=== PATIENT | male | born 1935 | race Caucasian/White ===

== ENCOUNTER 2016-12-09 11:17 | Inpatient (IN) | payer MEDICARE ==
[~2016-12-09] VITALS: Ht 172.7 cm; Wt 85.6 kg
[~2016-12-09 11:17] MED LIST: ASPI1TAB PO; ATOR40TA75 PO; AUGM875T28 PO; BACT800T5 PO; CARV25TA PO; DEPA125C PO; FOLI1TAB4 PO; HYDR-3363 PO; ISOS30TAB PO; KLOR1TAB73 PO; LASI40TA PO; LOSA50TA20 PO; OMEP20CA3 PO; PRED5TA PO; PROZ20CA11 PO; REQU2TAB3 PO; SPIR25TA2 PO; VITA100066 PO; WARF-58 PO
[2016-12-09 17:20] VITALS: PULSE 84
[2016-12-09 17:30] VITALS: BP 118/68
[2016-12-09] MEDS ORDERED: ONDANSETRON 4MG/2ML VIAL (J2405) IV PRN (18:00)
[2016-12-09] MEDS ORDERED: ROPI3TAB PO (20:15)
[2016-12-09] MEDS ORDERED: CARV3.12 PO (20:15)
[2016-12-09] MEDS ORDERED: VITMTA PO (20:19)
[2016-12-09] MEDS ORDERED: MELA1TAB15 PO (20:19)
[2016-12-09] MEDS ORDERED: FERR325T16 PO (20:19)
[2016-12-09] MEDS ORDERED: VITA100T PO (20:19)
[2016-12-09] MEDS ORDERED: DONETAB6 PO (20:19)
[2016-12-09] MEDS ORDERED: ZOLP10TA2 PO (20:19)
--- NOTE | 2016-12-09 20:20 | HPEPDOC ---
General Date of Admission Dec 09, 2016 at 11:17 Other Providers PCP: [facility] Attending Physician: SUSANNA NAVA DO Chief Complaint The patient is a 81-year-old male admitted with a reason for visit of Acute Renal Failure. History of Present Illness 81-year-old male with a rather complicated past medical history in recent months who recently had a bioprosthetic aortic valve replacement at [facility] on 09/13/2016. This was complicated by a subsequent admission for MSSA bacteremia on 11/28/2016. A PAZ done during the admission at [facility] revealed no vegetations on the valve. However, the patient was treated for presumptive endocarditis with oxacillin, rifampin, and 2 weeks of gentamicin starting on 12/01/16. Unfortunately, the patient's course was further complicated by C. difficile infection from the aforementioned antibiotics. The patient was then also started on 6 weeks of oral vancomycin. The patient then decided to sign himself out AGAINST MEDICAL ADVICE at [facility] on 12/04/16, and was said to be considering hospice care. The next day the patient was admitted to [facility] for generalized weakness and decompensated congestive heart failure, with the plan to transfer the patient to hospice vs rehabilitation eventually depending on the patient's clinical condition. The patient subsequently developed acute renal failure during his admission at [facility] from 12/05-12/09, as his serum creatinine increased from 0.7 to 3.0 during this time. Of note, the patient has been oliguric for the last 3 days producing about 50 mL of urine each day during this time. The patient was subsequently transferred to [facility] for further evaluation and management with nephrology consultation, as the patient and the family wanted to pursue further medical care. At this time, the patient states that he is feeling generalized fatigue, but denies any acute complaints of fevers, chills, SOB, chest pain, palpitations, lightheadedness, abdominal pain, or any nausea/vomiting. Home Medications Scheduled Aspirin (Aspirin 81) 81 Mg Tab, 81 MG PO DAILY, (Reported) Atorvastatin Calcium (Atorvastatin Calcium) 40 Mg Tab, 40 MG PO QHS, (Reported) Carvedilol (Carvedilol) 3.125 Mg Tab, 3.125 MG PO BID, (Reported) Cholecalciferol (Vitamin D) 1,000 Unit Tab, 1,000 UNIT PO DAILY, (Reported) Cyanocobalamin (Vitamin B-12) 100 Mcg Tab, 100 MCG PO DAILY, (Reported) Donepezil Hcl (Donepezil HCl) 10 Mg Tab, 10 MG PO DAILY, (Reported) Ferrous Gluconate (Ferrous Gluconate) 324 Mg Tab, 324 MG PO DAILY, (Reported) Fluoxetine HCl (Prozac) 20 Mg Cap, 20 MG PO BID, (Reported) Folic Acid (Folic Acid) 1 Mg Tab, 1 MG PO DAILY, (Reported) Furosemide (Lasix) 40 Mg Tab, 40 MG PO DAILY, (Reported) Melatonin (Melatonin) 10 Mg Tab, 10 MG PO QHS, (Reported) Multivitamins *[facility] STOCKED* (Thera M Plus *[facility] STOCKED*) 1 Tab Tab, 1 TAB PO BID , (Reported) Omeprazole (Omeprazole) 20 Mg Cap, 20 MG PO BID, (Reported) Ropinirole Hydrochloride (Ropinirole HCl) 3 Mg Tab, 3 MG PO QHS, (Reported) Spironolactone (Spironolactone) 25 Mg Tab, 25 MG PO DAILY, (Reported) Warfarin Sod (Warfarin Sodium) 3 Mg Tab, 3 MG PO DAILY, (Reported) Zolpidem Tartrate (Zolpidem Tartrate) 10 Mg Tab, 10 MG PO QHS, (Reported) Allergies Coded Allergies: Penicillins (Unverified Allergy, Unknown, 05/14/15) Past Medical History Medical History MSSA bacteremia, presumptive infective endocarditis, C. difficile colitis, history of CVA/TIA, atrial fibrillation not on Coumadin secondary to history of brain hemorrhage, congestive heart failure, hypertension, dyslipidemia, restless leg syndrome, GERD, anxiety/depression, CAD, history of prostate cancer , obstructive sleep apnea, history of LA Surgical History CAD status post stenting, CABG, appendectomy, prostatectomy, hernia repair, bioprosthetic valve replacement, cataract repair bilaterally Family History Significant Family History: No pertinent family hx Social History * Smoker: former Smoker Alcohol: Denies Drugs: denies Review of Symptoms Other systems 10 point review of systems negative unless otherwise specified in HPI. Physical Examination General Exam: Positive: Alert, Cooperative, No Acute Distress ENT Exam: Positive: Atraumatic, Mucous membr. moist/pink Neck Exam: Negative: JVD Chest Exam: Positive: Diminished, Negative: Rhonchi, Wheezing Heart Exam: Positive: Rate Normal, Normal S1, Normal S2, Other (+II/ systolic murmur along the sternal border on the left ) Abdomen Exam: Positive: Soft, Negative: Tenderness Extremity Exam: Negative: Tenderness, Swelling Vital Signs Vital Signs Date Time Temp Pulse Resp B/P (MAP) Pulse Ox O2 Delivery O2 Flow Rate FiO2 12/09/16 17:30 97.9 84 20 118/68 (85) 92 Nasal Cannula 3.0 Plan / VTE VTE Prophylaxis Ordered?: Yes (SCDs/TEDs) Plan / Urinary Catheter Reason for insertion/continuin: Critical Pt monitoring Plan Plan Acute Renal Failure 2/2 Multifactorial Etiology including Nephrotoxicity from Antibiotics, Volume Depletion from C. Diff diarrhea, and Concomitant Diuretic Use We will admit the patient to PCU Serum Cr 3.0 (Baseline 0.7-0.9) Will order gentle IVF Hydration as the patient does not appear to be volume overloaded at this time. Hold Nephrotoxins We will renally dose other medications Monitor I/O's Renal and Bladder U/S ordered as the patient has been having Hematuria Nephrology consultation placed MSSA Bacteremia 2/2 Presumptive Infective Endocarditis Patient was initially started on Gentamycin, Naficillin, Rifampin on 12/01-- however this has been held 2/2 Nephrotoxicity The hospitalist at [facility] did discuss antibiotic options with ID at [facility] and it was recommended that the patient be started on Rocephin We will cont Rocephin here Blood Cultures from 12/07 from [facility] negative Patient afebrile, with a normal WBC here We will repeat B Cx and monitor here Hx of Diff Patient was started on Vanco PO, however this was stopped 2/2 above The patient states that his diarrhea has dissipated We will continue to monitor off Abx for now, consider restarting Abx if diarrhea returns Hematuria We will hold the patient's ASA for now given his significant Hematuria noted Possibly 2/2 Traumatic Bello catheterization? Renal U/S, Bladder U/S ordered Atrial Fibrillation, rate controlled Not on AC 2/2 Hx of Hemorrhagic Brain Bleed according to records Cont Coreg Hx of CAD, Bioprosthetic Valve Replacement Cont Coreg, Statin We will hold the patient's ASA for now given his significant Hematuria noted Hx of Diastolic Congestive Heart Failure Patient appears Euvolemic at this time We will with hold any diuretics Depression/Anxiety Cont Current Regimen Dyslipidemia Cont statin Hx of CVA Cont Statin We will hold the patient's ASA for now given his significant Hematuria noted Restless Leg syndrome Cont Ropinirole DVT Prophylaxis (SCD/TEDs) Prognosis-the patient has a poor long-term prognosis given the patient's complicated recent medical history, and current underlying medical comorbidities. Currently the patient is DNR/DNI, however the family does state that there is a consideration of making the patient comfort measures only if his medical condition does not improve during this hospitalization. This patient will be admitted under the service of Dr. Nava, who will begin to follow the patient on 12/10/16 at 7 AM. SANTI BURR MD Dec 09, 2016 20:20
[2016-12-09 20:28] VITALS: BP 123/63
[2016-12-09] MEDS: ATORVASTATIN 20 MG TAB PO SCH (22:01)
[2016-12-09] MEDS: FLUoxetine 20 MG CAP PO SCH (22:02)
[2016-12-09] MEDS: CARVedilol 3.125 MG TAB PO SCH (22:02)
[2016-12-09] MEDS: rOPINIRole 1MG TAB PO SCH (22:02)
[2016-12-09] MEDS: MULTIVITAMINS/MINERALS THERAP 1 TAB PO SCH (22:02)
[2016-12-09] MEDS: NS 1,000 ML IV SCH (22:03)
[2016-12-09] MEDS: NYSTATIN 100,000 UNITS/GM TOPICAL PWD 15 GM TOP SCH (22:03)
[2016-12-09] MEDS: cefTRIAXone SOD 1 GM in D5W MINI-BAG PLUS 50 ML IV SCH (22:03)
--- NOTE | 2016-12-09 23:30 | REP ---
RENAL ULTRASOUND: Real-time sonographic evaluation of the kidneys is performed and demonstrates both kidneys to be somewhat increased in echotexture suggesting medical renal disease. There is no hydronephrosis. A cyst in the upper pole of the right kidney measures 1.9 x 1.8 x 1.4 cm and another adjacent cyst just inferior to that measures 1.3 x 1.1 x 0.7 cm. The cyst in the lower pole of the right kidney measures 5.4 x 3.6 x 4.7 cm. There are two subcentimeter cysts in the left upper pole. Bello catheter is seen in the urinary bladder. IMPRESSION: No hydronephrosis. Bilateral renal cysts. Signed by Pedro Bell MD 12/10/2016 05:00 P
[2016-12-09 23:59] VITALS: BP 126/58
[2016-12-10 05:00] VITALS: BP 115/69
[2016-12-10 05:50] LABS: MEAN CORPUSCULAR VOLUME 109.5 fl (80.0-96.0); RED CELL DISTRIBUTION WIDTH 15.6 % (11.5-14.5); WHITE BLOOD COUNT 8.1 K/mm3 (4.0-10.0)
[2016-12-10 06:23] LABS: MICROSCOPIC INDICATED? MAN YES (NO)
[2016-12-10 06:28] LABS: BACTERIA, URINE SMALL AMOUNT; HYALINE CAST, URINE NONE SEEN /lpf (0-1); RBC, URINE TNTC /hpf (0-3); SQUAMOUS EPITHELIAL CELL URINE NONE SEEN /hpf (SMALL AMT)
[2016-12-10 06:29] LABS: MICROSCOPIC EXAM UNSPUN
[2016-12-10 06:39] LABS: ALBUMIN 1.8 GM/DL (3.2-5.2); ALBUMIN/GLOBULIN RATIO 0.51 (1.00-1.93); BILIRUBIN,TOTAL 1.3 MG/DL (0.2-1.0); CALCIUM LEVEL 7.6 MG/DL (8.8-10.2); CREATININE FOR GFR 3.97 MG/DL (0.70-1.30); GLOMERULAR FILTRATION RATE 15.6 (>42); MAGNESIUM LEVEL 1.9 MG/DL (1.8-2.4); PHOSPHORUS LEVEL 4.9 MG/DL (2.5-4.9); TOTAL PROTEIN 5.3 GM/DL (6.4-8.2)
[2016-12-10 06:52] LABS: INR 2.36
[2016-12-10 08:00] VITALS: BP 113/65
[2016-12-10] MEDS: NYSTATIN 100,000 UNITS/GM TOPICAL PWD 15 GM TOP SCH ×2 (09:19→21:13)
[2016-12-10] MEDS: FERROUS GLUCONATE 324 MG TAB PO SCH (09:20)
[2016-12-10] MEDS: MULTIVITAMINS/MINERALS THERAP 1 TAB PO SCH ×2 (09:20→21:13)
[2016-12-10] MEDS: FLUoxetine 20 MG CAP PO SCH ×2 (09:20→21:12)
[2016-12-10] MEDS: CARVedilol 3.125 MG TAB PO SCH ×2 (09:20→21:13)
[2016-12-10] MEDS: FOLIC ACID 1 MG TAB PO SCH (09:20)
[2016-12-10] MEDS: NS 1,000 ML IV SCH (09:21)
[2016-12-10 12:00] VITALS: BP 101/57
--- NOTE | 2016-12-10 12:25 | REP ---
AP LATERAL CHEST: 12/10/2016 CLINICAL HISTORY: CHF, ARF. COMPARISON: Portable chest, 11/23/2016. FINDINGS: Lead pacer over the right upper chest with leads in the right antrum and right ventricle with prior leads from the previous pacer extending into the left upper chest is unchanged. There is cardiomegaly with left atrial and ventricular enlargement and venous hypertension. Underlying fibrosis present, but there is interstitial edema and basilar infiltrates or atelectasis that may reflect some alveolar edema. There is pleural effusion, left greater than right. Sternotomy wires are again seen. There are chronic post-traumatic changes to the left humeral head and glenoid. No other significant finding. No free air under the diaphragm. IMPRESSION: 1. Cardiomegaly with left atrial and ventricular enlargement, vascular redistribution with pulmonary edema and effusion prominently on the left with retrocardiac and right lower lobe increased density from atelectasis and/or infiltrate with effusion. 2. Right-sided pacer unit with leads unchanged and prior leads from a left-sided unit since removed. These are stable. Signed by Kiel Scruggs MD 12/10/2016 03:57 P
[2016-12-10] MEDS ORDERED: HEPARIN 1,000 UNITS/ML 10ML VIAL (FOR RADIOLOGY& DIALYSIS ONLY) As Ordered ONE (15:19)
[2016-12-10] MEDS ORDERED: LIDOCAINE W/EPINEPHRINE 1% 20ML VIAL As Ordered ONE (15:19)
[2016-12-10] MEDS ORDERED: LIDOCAINE 2% MDV 20 ML VIAL As Ordered ONE (16:02)
--- NOTE | 2016-12-10 17:31 | REPKIM ---
CLINICAL HISTORY: Patient with significant medical comorbidities, s/p AVR, AF, CVA/TIA, CAD with stenting, VT, MSSA bacteremia, s/p internal pacemaker presents with acute renal failure and coagulopathy. The referring nephrology service has asked a non-tunneled dialysis catheter placement. PROCEDURE PERFORMED: Right IJ Schon Non-tunneled Dialysis Catheter Placement INTERVENTIONALIST: Susana Davis MD MEDICATIONS: Local Lidocaine EBL: less than 10mL DEVICE USED: 14F SCHON XL 15-cm Double Lumen Catheter Lot#[id number] FLUORO TIME: 1.8 minutes CONSENT: The risks, benefits and alternatives to the procedure were explained to the patients and informed written consent was obtained. PROCEDURE/FINDINGS: The patient was brought to the interventional radiology suite and was positioned supine on the table. Time out procedure was performed. The right neck was prepped and draped in a usual sterile fashion. Real time ultrasound was used and permanent image stored. Using real time ultrasound guidance the IJ vein was punctured, after infiltration of the skin and deep tissues with local anesthetic. The guidewire was introduced. Using this access , a double lumen 14-Khmer Schon XL catheter was inserted over the guidewire. Post procedure chest radiograph showed the tip of the catheter at the SVC. The catheter was secured at the skin exit site with 2-0 suture. Each port of the catheter was flushed with saline then locked with heparin (concentration 1000 units/cc). A sterile dressing was then applied. The patient tolerated the procedure well with no immediate complications. This procedure was performed using ultrasound and fluoroscopy. Dr. Davis was present. IMPRESSION: 1. Ultrasound of the neck demonstrates patent right IJ vein and compressible. 2. Successful Schon non-tunneled dialysis catheter placement as discussed above. The catheter is ready for immediate use. cc: MD Thierry Barron MD MTDD
--- NOTE | 2016-12-10 18:36 | IPNPDOC ---
Subjective Date Seen The patient was seen on 12/10/16. Subjective Chief Complaint/HPI The patient is a 81-year-old male admitted with a reason for visit of Acute Renal Failure. General: Reports: Fatigue Constitutional: Denies: Chills, Fever, Night Sweats Gastrointestinal: Denies: Nausea, Vomiting, Abdominal Pain, Diarrhea, Constipation Objective Physical Examination General Exam: Positive: Alert, Cooperative, No Acute Distress ENT Exam: Positive: Atraumatic, Mucous membr. moist/pink Neck Exam: Negative: JVD Chest Exam: Positive: Diminished, Negative: Rhonchi, Wheezing Heart Exam: Positive: Rate Normal, Normal S1, Normal S2, Other (+II/ systolic murmur along the sternal border on the left ) Abdomen Exam: Positive: Soft, Negative: Tenderness Extremity Exam: Negative: Tenderness, Swelling Assessment /Plan Problems (1) Acute renal failure Status: Acute (2) Diarrhea Status: Acute (3) CHF (congestive heart failure) Status: Acute (4) Afib Status: Acute (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 (6) Bacteremia Status: Chronic Plan/VTE VTE Prophylaxis Ordered?: Yes (SCDs/TEDs) Plan/Urinary Catheter Reason for insertion/continuin: Critical Pt monitoring VS, I&O, 24H, Fishbone Vital Signs/I&O Vital Signs Date Time Temp Pulse Resp B/P (MAP) Pulse Ox O2 Delivery O2 Flow Rate FiO2 12/10/16 12:00 98.0 89 20 101/57 (72) 97 Nasal Cannula 3.0 I&O- Last 24 Hours up to 6 AM 12/10/16 06:00 Intake Total 0 ml Output Total 0 ml Balance 0 ml Laboratory Data 24H LABS Laboratory Tests 2 12/10/16 05:40: Prothrombin Time 25.9H, Prothromb Time International Ratio 2.36, Anion Gap 10, Glomerular Filtration Rate 15.6L, Blood Urea Nitrogen 29H, Creatinine 3.97H, Sodium Level 141, Potassium Level 4.0, Chloride Level 111H, Carbon Dioxide Level 20L, Calcium Level 7.6L, Phosphorus Level 4.9, Aspartate Amino Transf (AST /SGOT) 67H, Alanine Aminotransferase (ALT/SGPT) 23, Alkaline Phosphatase 203H, Total Bilirubin 1.3H, Total Protein 5.3L, Albumin 1.8L, Magnesium Level 1.9, Albumin/Globulin Ratio 0.51L 12/10/16 05:52: Bedside Urine Color (LAB) REDH, Bedside Urine Appearance (LAB) TURBIDH, Bedside Urine pH (LAB) OBSCUREDH, Bedside Urine Specific [place] (LAB 1.005, Bedside Urine Protein (LAB) OBSCUREDH, Bedside Urine Glucose (UA) OBSCUREDH, Bedside Urine Ketones (LAB) OBSCUREDH, Bedside Urine Blood POSITIVEH, Bedside Urine Nitrite (LAB) OBSCUREDH, Bedside Urine Bilirubin (LAB) OBSCUREDH, Bedside Urine Urobilinogen (LAB) OBSCUREDH, Bedside Urine Leukocyte Esterase (L OBSCUREDH, Urine WBC 1-3, Urine RBC TNTCH, Urine Squamous Epithelial Cells NONE SEEN, Urine Bacteria SMALL AMOUNTH, Urine Hyaline Casts NONE SEEN, Urine Sediment Examination UNSPUN CBC/BMP Laboratory Tests 12/10/16 05:40 Red Blood Count 2.74 L, Mean Corpuscular Volume 109.5 H, Mean Corpuscular Hemoglobin 35.0 H, Mean Corpuscular Hemoglobin Concent 32.0, Red Cell Distribution Width 15.6 H, Calcium Level 7.6 L, Phosphorus Level 4.9, Aspartate Amino Transf (AST/SGOT) 67 H, Alanine Aminotransferase (ALT/SGPT) 23, Alkaline Phosphatase 203 H, Total Bilirubin 1.3 H, Total Protein 5.3 L, Albumin 1.8 L Microbiology Microbiology 12/09/16 Blood Culture, Received Pending SUSANNA HAQUE DO Dec 10, 2016 18:35
[2016-12-10 20:20] VITALS: BP_SYST 100; BP_SYST 130; BP_DIAS 58
[2016-12-10] MEDS: rOPINIRole 1MG TAB PO SCH (21:12)
[2016-12-10] MEDS: cefTRIAXone SOD 1 GM in D5W MINI-BAG PLUS 50 ML IV SCH (21:12)
[2016-12-10] MEDS: ATORVASTATIN 20 MG TAB PO SCH (21:12)
[2016-12-10 23:33] VITALS: BP 86/56
[2016-12-11 00:46] VITALS: BP 100/70
[2016-12-11] MEDS ORDERED: SODIUM CHLORIDE 0.9% INJ 10 ML SYR IV PRN (01:15)
[2016-12-11 04:35] VITALS: BP 119/64
[2016-12-11] MEDS: SODIUM CHLORIDE 0.9% INJ 10 ML SYR IV SCH ×3 (05:05→21:55)
[2016-12-11 05:24] LABS: MEAN CORPUSCULAR HEMOGLOBIN 35.1 pg (27.0-33.0); MEAN CORPUSCULAR HGB CONC 32.2 g/dl (32.0-36.5); MEAN CORPUSCULAR VOLUME 108.8 fl (80.0-96.0); RED CELL DISTRIBUTION WIDTH 15.5 % (11.5-14.5); WHITE BLOOD COUNT 9.2 K/mm3 (4.0-10.0)
--- NOTE | 2016-12-11 05:27 | CR ---
DATE OF CONSULTATION: 12/10/2016 REFERRING PHYSICIAN: Thierry Ambriz MD. REASON FOR CONSULTATION Acute oliguric renal failure in this gentleman with complicated medical problems. HISTORY OF PRESENT ILLNESS: Mr. Villagran is a 81-year-old gentleman who was transferred to [facility] last evening from [facility]. The patient has multiple chronic medical problems and recently underwent aortic valve replacement at [facility]. Following that, he developed methicillin-sensitive Staphylococcus aureus (MSSA) bacteremia and was being treated for presumptive infective endocarditis. The patient signed out against medical advice from [facility] and a day later was admitted to [facility]. He had received antibiotics including gentamicin and the patient developed acute oliguric renal failure. He was treated by hospitalist at [facility] for two days with intravenous (IV) fluids, and antibiotics were stopped. I was called and case discussed by the hospitalist. The patient refused to go back to [facility] where his surgery was recently performed. The patient is transferred to [facility] due to potential need for dialysis. PAST MEDICAL AND SURGICAL HISTORY: 1. Significant for history of hypertension. 2. Coronary artery disease with prior myocardial infarction (MA). 3. History of dyslipidemia. 4. History of congestive heart failure. 5. History of recent aortic valve replacement. 6. History of presumptive infective endocarditis due to bacteremia. 7. Prior history of stroke. 8. History of atrial fibrillation currently not on anticoagulation. 9. History of obstructive sleep apnea. 10. History of gastroesophageal reflux disease. 11. History of anxiety and depression. Past surgical history is significant for coronary artery angioplasty with stents, history of coronary artery bypass graft (CABG), history of aortic valve replacement, remote history of appendectomy, prostatectomy, hernia repair, cataract surgery bilaterally. MEDICATIONS His home medications included: - aspirin 81 mg daily - atorvastatin 40 mg daily - carvedilol 3.125 mg twice a day - vitamin D 1000 units daily - vitamin B12 100 mcg daily - donepezil 10 mg daily - ferrous gluconate 324 mg daily - Prozac 20 mg daily - folic acid 1 mg daily - Lasix 40 mg daily - multivitamin one tablet daily - omeprazole 20 mg daily - Requip 3 mg at bedtime - spironolactone 25 mg daily - Coumadin 3 mg daily - Ambien 10 mg at bedtime ALLERGIES: The patient has allergy to PENICILLIN. PERSONAL AND SOCIAL HISTORY: The patient is a former smoker. He denies any alcohol or drug use. He lives with his family in [facility]. FAMILY HISTORY: Is negative for end-stage renal disease. REVIEW OF SYSTEMS: The patient denies any headache. Ears, nose and throat are unremarkable. Cardiovascular system is significant for congestive heart failure, recent aortic valve replacement and possible endocarditis. He denies any chest pain at present. Respiratory system is significant for obstructive sleep apnea and congestive heart failure. He has been short of breath on oxygen. Gastrointestinal (GI) system is significant for poor appetite. The patient denies any vomiting, abdominal pain, rectal bleeding or diarrhea. Genitourinary () system is significant for no urine output. He has a Bello catheter with minimal amount of bloody drainage. Musculoskeletal system is significant for chronic degenerative arthritis and peripheral edema. Endocrine system is negative for diabetes or thyroid problems. Hematological system is significant for prior history of anticoagulation which is currently on hold. Psychosocial system is significant for depression and anxiety. Neurological system is significant for prior stroke. There are no seizures reported. There is questionable history of brain hemorrhage without any details known at present. PHYSICAL EXAMINATION: GENERAL: This is an elderly gentleman lying in the bed without any acute distress. VITAL SIGNS: Temperature is 98 degrees Fahrenheit, heart rate 84 per minute and respiratory rate 22 per minute. Blood pressure 113/65 mmHg and oxygen saturation 98% on three liters oxygen. HEENT: His head is atraumatic. Ears, nose and throat are unremarkable. N NECK: Is supple and jugular venous distention (JVD) is about 6 cm above sternal angle. HEART: Sounds are irregular in rhythm. LUNGS: With moderate air entry and diminished breath sounds at dependent parts. ABDOMEN: Soft, nontender and without a palpable organomegaly. Bowel sounds are normal. EXTREMITIES: Have no cyanosis or clubbing. There is edema on both upper and lower extremities. NEUROLOGIC: He is awake, alert and able to answer simple questions. LABORATORY DATA: Today's labs show WBC count 8.1, hemoglobin 9.6 and hematocrit 30. Platelets 259. Sodium 141, potassium 4.0, CO2 20, chloride 111, BUN 29 and creatinine 3.97. Glucose 65 and calcium 7.6. INR is 2.36. Renal ultrasound was done shortly after admission which did not show any hydronephrosis. There are bilateral small renal cysts. PROBLEMS: 1. Oliguric acute renal failure possibly superimposed on chronic kidney disease. At present the patient is completely anuric. There are a only few drops of blood in the Bello catheter tubing. Bladder ultrasound did not show any evidence of distended bladder or hydronephrosis. The patient is currently receiving IV fluids 60 mL per hour which is appropriate. He has already been off his nephrotoxic antibiotics including gentamicin. I have discussed with the patient about potential need for dialysis and he is willing to go ahead with dialysis. We will consult interventional radiology for dialysis catheter placement. His international normalized ratio (INR) is elevated so only a temporary catheter will be placed which can be later switched to a Perma-Cath if needed. 2. History of methicillin-sensitive Staphylococcus aureus (MSSA) bacteremia. The patient is currently on ceftriaxone 1 gram every 24 hours which is appropriate. Gentamicin and Rifampin have been stopped. 3. Congestive heart failure. At present going to get a chest x-ray to assess his volume status. We will remove fluid with hemodialysis if indicated. I thank you for involving me in the care of Mr. Villagran. I will follow him along with you.
[2016-12-11 05:30] LABS: INR 2.29
[2016-12-11 05:59] LABS: ALBUMIN 1.8 GM/DL (3.2-5.2); ALBUMIN/GLOBULIN RATIO 0.5 (1.00-1.93); BILIRUBIN,TOTAL 1.2 MG/DL (0.2-1.0); CALCIUM LEVEL 7.9 MG/DL (8.8-10.2); CREATININE FOR GFR 4.44 MG/DL (0.70-1.30); GLOMERULAR FILTRATION RATE 13.7 (>42); MAGNESIUM LEVEL 1.9 MG/DL (1.8-2.4); PHOSPHORUS LEVEL 5.3 MG/DL (2.5-4.9); POTASSIUM SERUM 3.9 MEQ/L (3.5-5.1); TOTAL PROTEIN 5.4 GM/DL (6.4-8.2)
[2016-12-11 08:00] VITALS: BP 104/56
[2016-12-11] MEDS: FERROUS GLUCONATE 324 MG TAB PO SCH (08:29)
[2016-12-11] MEDS: FOLIC ACID 1 MG TAB PO SCH (08:29)
[2016-12-11] MEDS: NYSTATIN 100,000 UNITS/GM TOPICAL PWD 15 GM TOP SCH ×2 (08:29→22:02)
[2016-12-11] MEDS: CARVedilol 3.125 MG TAB PO SCH ×2 (08:30→21:56)
[2016-12-11] MEDS: MULTIVITAMINS/MINERALS THERAP 1 TAB PO SCH ×2 (08:30→21:55)
[2016-12-11] MEDS: FLUoxetine 20 MG CAP PO SCH ×2 (08:30→21:55)
[2016-12-11] MEDS ORDERED: HEPARIN 1,000 UNITS/ML 10ML VIAL (FOR RADIOLOGY& DIALYSIS ONLY) XX ONE (11:45)
[2016-12-11 12:00] VITALS: BP 125/58
[2016-12-11] MEDS: ACETAMINOPHEN TAB 650MG DOSE (2X325MG) PO PRN (13:10)
[2016-12-11 16:00] VITALS: BP 118/58
--- NOTE | 2016-12-11 18:28 | IPNPDOC ---
Subjective Date Seen The patient was seen on 12/11/16. Subjective Chief Complaint/HPI The patient is a 81-year-old male admitted with a reason for visit of Acute Renal Failure. Objective Physical Examination General Exam: Positive: Alert, Cooperative, No Acute Distress ENT Exam: Positive: Atraumatic, Mucous membr. moist/pink Neck Exam: Negative: JVD Chest Exam: Positive: Diminished, Negative: Rhonchi, Wheezing Heart Exam: Positive: Rate Normal, Normal S1, Normal S2, Other (+II/ systolic murmur along the sternal border on the left ) Abdomen Exam: Positive: Soft, Negative: Tenderness Extremity Exam: Negative: Tenderness, Swelling Assessment /Plan Problems (1) Acute renal failure Status: Acute Problem Text: * pt underwent dialysis this morning (2) Diarrhea Status: Acute Problem Text: * check Cdiff (3) CHF (congestive heart failure) Status: Acute Problem Text: * EF of 45% per echo on 05/07 * systolic and diastolic (4) Afib Status: Acute (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 (6) Bacteremia Status: Chronic Plan/VTE VTE Prophylaxis Ordered?: Yes (SCDs/TEDs) Plan/Urinary Catheter Reason for insertion/continuin: Critical Pt monitoring VS, I&O, 24H, Fishbone Vital Signs/I&O Vital Signs Date Time Temp Pulse Resp B/P (MAP) Pulse Ox O2 Delivery O2 Flow Rate FiO2 12/11/16 16:00 98.4 84 20 118/58 (78) 97 Nasal Cannula 2.0 I&O- Last 24 Hours up to 6 AM 12/11/16 05:59 Intake Total 1190 ml Output Total 60 ml Balance 1130 ml Laboratory Data 24H LABS Laboratory Tests 2 12/11/16 05:03: Prothrombin Time 25.3H, Prothromb Time International Ratio 2.29, Anion Gap 12, Glomerular Filtration Rate 13.7L, Blood Urea Nitrogen 33H, Creatinine 4.44H, Sodium Level 141, Potassium Level 3.9, Chloride Level 111H, Carbon Dioxide Level 18L, Calcium Level 7.9L, Phosphorus Level 5.3H, Aspartate Amino Transf ( AST/SGOT) 53H, Alanine Aminotransferase (ALT/SGPT) 20, Alkaline Phosphatase 207H , Total Bilirubin 1.2H, Total Protein 5.4L, Albumin 1.8L, Magnesium Level 1.9, Albumin/Globulin Ratio 0.50L CBC/BMP Laboratory Tests 12/11/16 05:03 Red Blood Count 2.80 L, Mean Corpuscular Volume 108.8 H, Mean Corpuscular Hemoglobin 35.1 H, Mean Corpuscular Hemoglobin Concent 32.2, Red Cell Distribution Width 15.5 H, Calcium Level 7.9 L, Phosphorus Level 5.3 H, Aspartate Amino Transf (AST/SGOT) 53 H, Alanine Aminotransferase (ALT/SGPT) 20, Alkaline Phosphatase 207 H, Total Bilirubin 1.2 H, Total Protein 5.4 L, Albumin 1.8 L Microbiology Microbiology 12/09/16 Blood Culture - Preliminary, Resulted No growth after 24 hours . All specim... SUSANNA HAQUE DO Dec 11, 2016 18:28
--- NOTE | 2016-12-11 18:49 | IPN ---
DATE: 12/11/2016 Mr. Villagran was transferred to [facility] from [facility] due to oliguric acute renal failure. Unfortunately, he remains anuric since admission. He has been receiving IV fluids and does not look dehydrated. A renal ultrasound was negative for any evidence of hydronephrosis or bladder distension. He has been treated with antibiotics for methicillin-sensitive Staphylococcus aureus (MSSA) bacteremia following his aortic valve replacement. PHYSICAL EXAMINATION: On physical examination, temperature 98.4 degrees Fahrenheit, heart rate 68 per minute and respiratory rate 20 per minute. Blood pressure 104/56 mmHg and oxygen saturation 98% on two liters oxygen. Head is atraumatic. Pupils are equal and reactive to light and sclera is anicteric. Ears, nose and throat are unremarkable. A temporary hemodialysis catheter is present in right internal jugular vein. Neck veins are difficult to be assessed as the patient is currently being dialyzed. Heart sounds are regular and without a pericardial friction rub. Lungs with diminished breath sounds at the bases bilaterally. Abdomen is soft and nontender and bowel sounds are normal. Extremities have no cyanosis or clubbing. Skin has no rash or ulcers. Neurologically, he is awake, alert and oriented times three. LABORATORY DATA: Today's laboratories show WBC count 9.2, hemoglobin 9.8 and hematocrit 30.4. Platelets 284. Sodium 141 and potassium 3.9. CO2 18, BUN 33 and creatinine 4.44. Rest of chemistry is essentially unchanged. PROBLEMS: 1. Anuric acute renal failure superimposed on chronic kidney disease. No improvement in kidney function. The patient has almost no urine output. He is being dialyzed today and we will continue to dialyze him until his kidney function improves. At present, his electrolytes are reasonably well-compensated. 2. History of methicillin-sensitive Staphylococcus aureus (MSSA) bacteremia. The patient is currently on Rocephin and no nephrotoxic antibiotics are being given. He had received gentamicin previously which has been stopped. 3. Anemia. His anemia is stable at present and does not need any intervention. 4. History of aortic valve replacement recently. The patient is currently off his anticoagulation due to history of intracerebral bleed recently. 5. Hypertension. Blood pressure is well-controlled on current medications.
[2016-12-11 20:00] VITALS: BP 103/56
[2016-12-11] MEDS: cefTRIAXone SOD 1 GM in D5W MINI-BAG PLUS 50 ML IV SCH (21:55)
[2016-12-11] MEDS: ATORVASTATIN 20 MG TAB PO SCH (21:55)
[2016-12-11] MEDS: rOPINIRole 1MG TAB PO SCH (21:55)
[2016-12-12] VITALS (7 sets, daily range): BP systolic 99–118; BP diastolic 54–61
[2016-12-12] MEDS: SODIUM CHLORIDE 0.9% INJ 10 ML SYR IV SCH ×3 (05:24→20:09)
[2016-12-12 05:42] LABS: MEAN CORPUSCULAR HEMOGLOBIN 35.6 pg (27.0-33.0); MEAN CORPUSCULAR HGB CONC 33.3 g/dl (32.0-36.5); MEAN CORPUSCULAR VOLUME 106.9 fl (80.0-96.0); RED CELL DISTRIBUTION WIDTH 16.1 % (11.5-14.5); WHITE BLOOD COUNT 5.9 K/mm3 (4.0-10.0)
[2016-12-12 05:45] LABS: INR 2.14
[2016-12-12 06:21] LABS: ALBUMIN 1.8 GM/DL (3.2-5.2); ALBUMIN/GLOBULIN RATIO 0.5 (1.00-1.93); BILIRUBIN,TOTAL 1.2 MG/DL (0.2-1.0); CALCIUM LEVEL 8.1 MG/DL (8.8-10.2); CREATININE FOR GFR 3.34 MG/DL (0.70-1.30); GLOMERULAR FILTRATION RATE 19.1 (>42); MAGNESIUM LEVEL 1.7 MG/DL (1.8-2.4); PHOSPHORUS LEVEL 3.4 MG/DL (2.5-4.9); POTASSIUM SERUM 3.4 MEQ/L (3.5-5.1); TOTAL PROTEIN 5.4 GM/DL (6.4-8.2)
[2016-12-12] MEDS: FLUoxetine 20 MG CAP PO SCH ×2 (08:17→20:07)
[2016-12-12] MEDS: FOLIC ACID 1 MG TAB PO SCH (08:18)
[2016-12-12] MEDS: CARVedilol 3.125 MG TAB PO SCH ×2 (08:18→20:08)
[2016-12-12] MEDS: NYSTATIN 100,000 UNITS/GM TOPICAL PWD 15 GM TOP SCH ×2 (08:18→20:09)
[2016-12-12] MEDS: FERROUS GLUCONATE 324 MG TAB PO SCH (08:18)
[2016-12-12] MEDS: MULTIVITAMINS/MINERALS THERAP 1 TAB PO SCH ×2 (08:18→20:06)
[2016-12-12] MEDS ORDERED: POTASSIUM CHLORIDE 10 MEQ SR TABLET PO ONE (10:00)
[2016-12-12] MEDS ORDERED: MAG SULF 1GM/100ML (MAG RUN) 1 GM in APPROPRIATE DILUENT 1 EA IV ONE (10:00)
[2016-12-12] MEDS ORDERED: HEPARIN 1,000 UNITS/ML 10ML VIAL (FOR RADIOLOGY& DIALYSIS ONLY) IV ONE (10:30)
[2016-12-12] MEDS ORDERED: DARBEPOETIN 100 MCG/0.5 ML *DIALYSIS* SYRINGE (J0882) IV SCH (11:00)
[2016-12-12] MEDS: ACETAMINOPHEN TAB 650MG DOSE (2X325MG) PO PRN ×2 (14:30→20:51)
[2016-12-12 15:08] LABS: CALCIUM LEVEL 8.4 MG/DL (8.8-10.2); CREATININE FOR GFR 2.04 MG/DL (0.70-1.30); GLOMERULAR FILTRATION RATE 33.7 (>42); POTASSIUM SERUM 3.5 MEQ/L (3.5-5.1)
--- NOTE | 2016-12-12 18:26 | IPNPDOC ---
Subjective Date Seen The patient was seen on 12/12/16. Subjective Chief Complaint/HPI The patient is a 81-year-old male admitted with a reason for visit of Acute Renal Failure. Events since last encounter pt seen and examined, denies any shortness of breath denies chest pain Objective Physical Examination General Exam: Positive: Alert, Cooperative, No Acute Distress ENT Exam: Positive: Atraumatic, Mucous membr. moist/pink Neck Exam: Negative: JVD Chest Exam: Positive: Diminished, Negative: Rhonchi, Wheezing Heart Exam: Positive: Rate Normal, Normal S1, Normal S2, Other (+II/ systolic murmur along the sternal border on the left ) Abdomen Exam: Positive: Soft, Negative: Tenderness Extremity Exam: Negative: Tenderness, Swelling Assessment /Plan Problems (1) Acute renal failure Status: Acute Problem Text: * pt underwent dialysis this morning again * pt is still edematous and had some shortness of breath so he was taken to dialysis again (2) Diarrhea Status: Acute Problem Text: * check Cdiff (3) CHF (congestive heart failure) Status: Acute Problem Text: * EF of 45% per echo on 05/07 * systolic and diastolic (4) Afib Status: Acute (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 (6) Bacteremia Status: Chronic Plan/VTE VTE Prophylaxis Ordered?: Yes (SCDs/TEDs) Plan/Urinary Catheter Reason for insertion/continuin: Critical Pt monitoring VS, I&O, 24H, Fishbone Vital Signs/I&O Vital Signs Date Time Temp Pulse Resp B/P (MAP) Pulse Ox O2 Delivery O2 Flow Rate FiO2 12/12/16 16:00 Nasal Cannula 2.0 12/12/16 16:00 98.8 84 22 99/54 (69) 97 I&O- Last 24 Hours up to 6 AM 12/12/16 06:00 Intake Total 870 ml Output Total 2000 ml Balance -1130 ml Laboratory Data 24H LABS Laboratory Tests 2 12/12/16 05:23: Prothrombin Time 24.0H, Prothromb Time International Ratio 2.14, Anion Gap 10, Glomerular Filtration Rate 19.1L, Blood Urea Nitrogen 19H, Creatinine 3.34H, Sodium Level 141, Potassium Level 3.4L, Chloride Level 107, Carbon Dioxide Level 24, Calcium Level 8.1L, Phosphorus Level 3.4#, Aspartate Amino Transf (AST /SGOT) 48H, Alanine Aminotransferase (ALT/SGPT) 22, Alkaline Phosphatase 190H, Total Bilirubin 1.2H, Total Protein 5.4L, Albumin 1.8L, Magnesium Level 1.7L, Albumin/Globulin Ratio 0.50L 12/12/16 10:01: 12/12/16 14:32: Anion Gap 8, Glomerular Filtration Rate 33.7L, Blood Urea Nitrogen 10, Creatinine 2.04H, Sodium Level 139, Potassium Level 3.5, Chloride Level 103, Carbon Dioxide Level 28, Calcium Level 8.4L, Magnesium Level 2.0 CBC/BMP Laboratory Tests 12/12/16 05:23 Red Blood Count 2.49 L, Mean Corpuscular Volume 106.9 H, Mean Corpuscular Hemoglobin 35.6 H, Mean Corpuscular Hemoglobin Concent 33.3, Red Cell Distribution Width 16.1 H, Calcium Level 8.1 L, Phosphorus Level 3.4 #, Aspartate Amino Transf (AST/SGOT) 48 H, Alanine Aminotransferase (ALT/SGPT) 22, Alkaline Phosphatase 190 H, Total Bilirubin 1.2 H, Total Protein 5.4 L, Albumin 1.8 L 12/12/16 14:32 Calcium Level 8.4 L Microbiology Microbiology 12/09/16 Blood Culture - Preliminary, Resulted No Growth after 48 hours. All Specime... SUSANNA HAQUE DO Dec 12, 2016 18:26
[2016-12-12] MEDS: ATORVASTATIN 20 MG TAB PO SCH (20:05)
[2016-12-12] MEDS: rOPINIRole 1MG TAB PO SCH (20:07)
[2016-12-12] MEDS: cefTRIAXone SOD 1 GM in D5W MINI-BAG PLUS 50 ML IV SCH (20:08)
--- NOTE | 2016-12-12 21:32 | IPN ---
DATE: 12/12/2016 Mr. Villagran is seen this morning on his bedside. Currently he is in dialysis and I saw him earlier in his room. He remains weak, short of breath and discouraged about his condition. He reports no appetite. There is no vomiting or diarrhea reported. He has a Bello catheter with empty bag and no urine output. PHYSICAL EXAMINATION: Temperature 97.8 degrees Fahrenheit, heart rate 84 per minute and respiratory rate 18 per minute. Blood pressure 105/60 mmHg and oxygen saturation 95% on 2 liters oxygen. His head is atraumatic. Dialysis catheter in right internal jugular vein is present. He also has a central line in the left internal jugular vein. Oral mucosa is moist and without thrush or ulcers. Pupils equal and reactive to light and sclera anicteric. Heart: Sounds are irregular in rhythm. Lungs with diminished breath sounds bilaterally. Abdomen: Soft and nontender and without palpable organomegaly. Extremities: Without cyanosis or clubbing. Today's labs show WBC count 5.9, hemoglobin is 8.9 and hematocrit 26.6. Platelets 228. Sodium 141 and potassium 3.4. BUN 19 and creatinine 3.34. Calcium is 8.1, phosphorus 3.4 and magnesium 1.7. Total protein 5.4 and albumin 1.8. PROBLEMS: 1. Acute renal failure. The patient remains anuric. He is being dialyzed again today. We will dialyze him for 3 hours and also try to remove some fluid as tolerated. 2. Hypokalemia. This is related to poor oral intake and hemodialysis yesterday. The patient is being dialyzed with 4.0 mEq potassium bath today. His potassium is likely to improve with it. 3. History of bacteremia. The patient remains on ceftriaxone 1 gram every 24-hours. He is afebrile at present. 4. Anemia. Slight worsening in anemia is noted. The patient has acute renal failure. We will start him on Aranesp 100 mcg once a week. He is also receiving oral iron supplement. 5. Hypertension. Blood pressure is well-controlled on low-dose beta chantal.
[2016-12-13 04:00] VITALS: BP 116/64
[2016-12-13] MEDS: SODIUM CHLORIDE 0.9% INJ 10 ML SYR IV SCH ×3 (05:41→23:27)
[2016-12-13 07:48] LABS: MEAN CORPUSCULAR HEMOGLOBIN 35.2 pg (27.0-33.0); MEAN CORPUSCULAR HGB CONC 33.2 g/dl (32.0-36.5); MEAN CORPUSCULAR VOLUME 106.1 fl (80.0-96.0); RED CELL DISTRIBUTION WIDTH 16.5 % (11.5-14.5); WHITE BLOOD COUNT 6.6 K/mm3 (4.0-10.0)
[2016-12-13 08:00] VITALS: BP 116/64
[2016-12-13 08:10] LABS: INR 1.84
[2016-12-13 08:23] LABS: ALBUMIN 1.8 GM/DL (3.2-5.2); ALBUMIN/GLOBULIN RATIO 0.49 (1.00-1.93); BILIRUBIN,TOTAL 1.1 MG/DL (0.2-1.0); CALCIUM LEVEL 8.5 MG/DL (8.8-10.2); CREATININE FOR GFR 2.87 MG/DL (0.70-1.30); GLOMERULAR FILTRATION RATE 22.7 (>42); MAGNESIUM LEVEL 2.1 MG/DL (1.8-2.4); PHOSPHORUS LEVEL 2.3 MG/DL (2.5-4.9); POTASSIUM SERUM 3.8 MEQ/L (3.5-5.1); TOTAL PROTEIN 5.5 GM/DL (6.4-8.2)
[2016-12-13] MEDS: CARVedilol 3.125 MG TAB PO SCH ×2 (09:00→20:13)
[2016-12-13] MEDS: FERROUS GLUCONATE 324 MG TAB PO SCH (09:09)
[2016-12-13] MEDS: MULTIVITAMINS/MINERALS THERAP 1 TAB PO SCH ×2 (09:09→20:11)
[2016-12-13] MEDS: ACETAMINOPHEN TAB 650MG DOSE (2X325MG) PO PRN ×2 (09:11→20:15)
[2016-12-13] MEDS: FLUoxetine 20 MG CAP PO SCH ×2 (09:28→20:14)
[2016-12-13] MEDS: FOLIC ACID 1 MG TAB PO SCH (09:28)
[2016-12-13] MEDS: NYSTATIN 100,000 UNITS/GM TOPICAL PWD 15 GM TOP SCH ×2 (09:29→23:27)
[2016-12-13 10:24] LABS: HEPATITIS B SURFACE ANTIBODY POSITIVE (POSITIVE)
[2016-12-13] MEDS: MEGESTROL SUSP 400 MG/10 ML UDC PO SCH (10:36)
[2016-12-13 12:00] VITALS: BP 105/55
[2016-12-13] MEDS ORDERED: SODIUM CHLORIDE 0.9% INJ 10 ML SYR IV PRN (13:00)
[2016-12-13 16:00] VITALS: BP 111/59
--- NOTE | 2016-12-13 17:36 | IPNPDOC ---
Subjective Date Seen The patient was seen on 12/13/16. Subjective Chief Complaint/HPI The patient is a 81-year-old male admitted with a reason for visit of Acute Renal Failure. Events since last encounter pt seen and examined, no overnight events, pt refusing to eat , states food tastes bad Constitutional: Denies: Chills, Fever, Night Sweats Cardiovascular: Denies: Chest Pain, Palpitations, Orthopnea, Paroxysmal Noc. Dyspnea, Lt Headedness Objective Physical Examination General Exam: Positive: Alert, Cooperative, No Acute Distress ENT Exam: Positive: Atraumatic, Mucous membr. moist/pink Neck Exam: Negative: JVD Chest Exam: Positive: Diminished, Negative: Rhonchi, Wheezing Heart Exam: Positive: Rate Normal, Normal S1, Normal S2, Other (+II/ systolic murmur along the sternal border on the left ) Abdomen Exam: Positive: Soft, Negative: Tenderness Extremity Exam: Negative: Tenderness, Swelling Assessment /Plan Problems (1) Acute renal failure Status: Acute Problem Text: * continues dialysis * will get perm cath on friday * worsening kidney function * renal failure likely multifactorial, due to infection, dehydration from diarrhea, drug toxicity vs chronic kidney injury (2) Diarrhea Status: Acute Problem Text: * cdiff negative * pt had history of cdiff and it was treated (3) CHF (congestive heart failure) Status: Acute Problem Text: * EF of 45% per echo on 05/07 * systolic and diastolic (4) Afib Status: Acute Problem Text: * stable * continue carvedilol 3.125 bid * pt was on Coumadin but it was held, pt has history of hemorrhagic stroke and he came in with hematuria * will continue to hold since pt will likely need perm cath to be placed next week, will look at records to see if pt has been on coumadin recently, if so we will likely continue it (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 * pt has been on Iv antibiotics since admission * will continue for a total of 10 days (6) Bacteremia Status: Chronic (7) Decrease in appetite Status: Acute Problem Text: * pt was started on megace and will encourage nepro (8) CAD (coronary artery disease) Status: Chronic Response to Treatment: Stable Plan/VTE VTE Prophylaxis Ordered?: Yes (SCDs/TEDs) Plan/Urinary Catheter Reason for insertion/continuin: Critical Pt monitoring VS, I&O, 24H, Fishbone Vital Signs/I&O Vital Signs Date Time Temp Pulse Resp B/P (MAP) Pulse Ox O2 Delivery O2 Flow Rate FiO2 12/13/16 16:30 Nasal Cannula 2.0 12/13/16 12:00 98.4 84 22 105/55 (72) 100 I&O- Last 24 Hours up to 6 AM 12/13/16 05:59 Intake Total 340 ml Output Total 1500 ml Balance -1160 ml Laboratory Data 24H LABS Laboratory Tests 2 12/13/16 07:30: Prothrombin Time 21.3H, Prothromb Time International Ratio 1.84, Anion Gap 8, Glomerular Filtration Rate 22.7L, Blood Urea Nitrogen 12, Creatinine 2.87H, Sodium Level 140, Potassium Level 3.8, Chloride Level 105, Carbon Dioxide Level 27, Calcium Level 8.5L, Phosphorus Level 2.3#L, Aspartate Amino Transf (AST/SGOT ) 45H, Alanine Aminotransferase (ALT/SGPT) 20, Alkaline Phosphatase 192H, Total Bilirubin 1.1H, Total Protein 5.5L, Albumin 1.8L, Magnesium Level 2.1, Albumin/ Globulin Ratio 0.49L CBC/BMP Laboratory Tests 12/13/16 07:30 Red Blood Count 2.55 L, Mean Corpuscular Volume 106.1 H, Mean Corpuscular Hemoglobin 35.2 H, Mean Corpuscular Hemoglobin Concent 33.2, Red Cell Distribution Width 16.5 H, Calcium Level 8.5 L, Phosphorus Level 2.3 #L, Aspartate Amino Transf (AST/SGOT) 45 H, Alanine Aminotransferase (ALT/SGPT) 20, Alkaline Phosphatase 192 H, Total Bilirubin 1.1 H, Total Protein 5.5 L, Albumin 1.8 L Microbiology Microbiology 12/09/16 Blood Culture - Preliminary, Resulted No Growth after 72 hours. All specime... 12/13/16 Clostridium difficile (PCR) - Final, Complete SUSANNA HAQUE DO Dec 13, 2016 17:36
--- NOTE | 2016-12-13 19:45 | IPN ---
DATE: 12/13/2016 Mr. Villagran was seen this morning on his bedside. He is sleepy but arousable. I have woke him up. Nursing staff reports that the patient has not been eating at all. He underwent hemodialysis yesterday. Urine output remains zero. PHYSICAL EXAMINATION: Temperature 98.4 degrees Fahrenheit, heart rate 84 per minute and respiratory rate 22 per minute. Blood pressure 105/55 mmHg and oxygen saturation 100% on 2 liters nasal cannula. Neck is supple and head is atraumatic. Heart: Sounds are regular and lungs with moderate bilateral air entry. Abdomen: Soft and nontender. Bowel sounds are normal. Extremities: Without any cyanosis or clubbing. Edema on upper extremities is slightly improved. He has multiple ulcers which are healing. Neurologically he is arousable but sleepy at present. He did not have any focal neurological deficit. LABORATORY: Today's labs show a WBC count 6.6, hemoglobin 9.0 and hematocrit 27.0. INR is down to 1.84. Sodium 140 and potassium 3.8. BUN 12 and creatinine 2.87. PROBLEMS: 1. Anuric acute renal failure. The patient remains totally anuric and dialysis dependent. He was dialyzed yesterday and we will schedule his next hemodialysis for tomorrow. Electrolytes are now within normal range. His volume status is reasonably well-compensated. 2. History of staph bacteremia. The patient has been on Rocephin and is currently afebrile. I will defer to hospitalist service to determine the length of therapy. 3. C diff colitis. The patient did have a another stool panel done and there was no C diff detected. 4. Anemia. No significant change in anemia. At present there is no indication for transfusion. 5. Depression. The patient remains quite depressed. He is already on Prozac 20 mg twice a day. 6. Anorexia. The patient has not eating at all. There is no obvious reason for it. I am going to start him on Megace 400 mg daily. DISPOSITION: At present the patient is not quite ready for discharge. We will need to get physical therapy involved. We will also need to get his dialysis catheter changed to a Perma-Cath next week when his INR comes below 1.5.
[2016-12-13 20:00] VITALS: BP 127/60
[2016-12-13] MEDS: ATORVASTATIN 20 MG TAB PO SCH (20:11)
[2016-12-13] MEDS: rOPINIRole 1MG TAB PO SCH (20:14)
[2016-12-13] MEDS: cefTRIAXone SOD 1 GM in D5W MINI-BAG PLUS 50 ML IV SCH (20:16)
[2016-12-13 23:59] VITALS: BP 102/58
[2016-12-14] MEDS: zolPIDEM TARTRATE 10MG TAB PO PRN ×2 (00:28→22:20)
[2016-12-14 04:45] VITALS: BP 123/67
[2016-12-14] MEDS: SODIUM CHLORIDE 0.9% INJ 10 ML SYR IV SCH ×3 (05:12→22:21)
[2016-12-14 05:35] LABS: MEAN CORPUSCULAR HEMOGLOBIN 35.1 pg (27.0-33.0); MEAN CORPUSCULAR HGB CONC 32.8 g/dl (32.0-36.5); MEAN CORPUSCULAR VOLUME 106.8 fl (80.0-96.0); RED CELL DISTRIBUTION WIDTH 16.9 % (11.5-14.5); WHITE BLOOD COUNT 6.9 K/mm3 (4.0-10.0)
[2016-12-14 05:37] LABS: INR 1.89
[2016-12-14 06:07] LABS: ALBUMIN 1.8 GM/DL (3.2-5.2); ALBUMIN/GLOBULIN RATIO 0.51 (1.00-1.93); BILIRUBIN,TOTAL 1.1 MG/DL (0.2-1.0); CALCIUM LEVEL 8.6 MG/DL (8.8-10.2); CREATININE FOR GFR 3.52 MG/DL (0.70-1.30); MAGNESIUM LEVEL 2.2 MG/DL (1.8-2.4); PHOSPHORUS LEVEL 2.5 MG/DL (2.5-4.9); POTASSIUM SERUM 3.7 MEQ/L (3.5-5.1); TOTAL PROTEIN 5.3 GM/DL (6.4-8.2)
[2016-12-14] MEDS: MEGESTROL SUSP 400 MG/10 ML UDC PO SCH (07:45)
[2016-12-14] MEDS: FOLIC ACID 1 MG TAB PO SCH (07:46)
[2016-12-14] MEDS: FERROUS GLUCONATE 324 MG TAB PO SCH (07:46)
[2016-12-14] MEDS: MULTIVITAMINS/MINERALS THERAP 1 TAB PO SCH ×2 (07:46→20:46)
[2016-12-14] MEDS: FLUoxetine 20 MG CAP PO SCH ×2 (07:46→20:46)
[2016-12-14] MEDS: CARVedilol 3.125 MG TAB PO SCH ×2 (07:46→20:46)
[2016-12-14] MEDS: NYSTATIN 100,000 UNITS/GM TOPICAL PWD 15 GM TOP SCH ×2 (07:47→20:47)
[2016-12-14 08:00] VITALS: BP 113/61
[2016-12-14] MEDS ORDERED: HEPARIN 1,000 UNITS/ML 10ML VIAL (FOR RADIOLOGY& DIALYSIS ONLY) XX ONE (11:30)
[2016-12-14] MEDS: ACETAMINOPHEN TAB 650MG DOSE (2X325MG) PO PRN (12:30)
--- NOTE | 2016-12-14 15:20 | IPNPDOC ---
Subjective Date Seen The patient was seen on 12/14/16. Subjective Chief Complaint/HPI The patient is a 81-year-old male admitted with a reason for visit of Acute Renal Failure. Constitutional: Denies: Chills, Fever, Night Sweats Pulmonary: Reports: Dyspnea, Cough Cardiovascular: Denies: Chest Pain, Palpitations, Orthopnea, Paroxysmal Noc. Dyspnea, Lt Headedness Objective Physical Examination General Exam: Positive: Alert, Cooperative, No Acute Distress ENT Exam: Positive: Atraumatic, Mucous membr. moist/pink Neck Exam: Negative: JVD Chest Exam: Positive: Diminished, Negative: Rhonchi, Wheezing Heart Exam: Positive: Rate Normal, Normal S1, Normal S2, Other (+II/ systolic murmur along the sternal border on the left ) Abdomen Exam: Positive: Soft, Negative: Tenderness Extremity Exam: Negative: Tenderness, Swelling Assessment /Plan Problems (1) Acute renal failure Status: Acute Problem Text: * continues dialysis * will get perm cath on friday * worsening kidney function * renal failure likely multifactorial, due to infection, dehydration from diarrhea, drug toxicity vs chronic kidney injury (2) Diarrhea Status: Acute Problem Text: * cdiff negative * pt had history of cdiff and it was treated * will place rectal tube (3) CHF (congestive heart failure) Status: Acute Problem Text: * EF of 45% per echo on 05/07 * systolic and diastolic (4) Afib Status: Acute Problem Text: * stable * continue carvedilol 3.125 bid * pt was on Coumadin but it was held, pt has history of hemorrhagic stroke and he came in with hematuria * he was told in [place] that he can continue his coumadin will resume it after perm catheter placed on friday (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 * pt has been on Iv antibiotics since admission * will continue for a total of 10 days (6) Bacteremia Status: Chronic (7) Decrease in appetite Status: Acute Problem Text: * pt was started on megace and will encourage nepro (8) CAD (coronary artery disease) Status: Chronic Response to Treatment: Stable Plan/VTE VTE Prophylaxis Ordered?: Yes (SCDs/TEDs) Plan/Urinary Catheter Reason for insertion/continuin: Critical Pt monitoring VS, I&O, 24H, Fishbone Vital Signs/I&O Vital Signs Date Time Temp Pulse Resp B/P (MAP) Pulse Ox O2 Delivery O2 Flow Rate FiO2 12/14/16 12:39 Nasal Cannula 3.0 12/14/16 08:00 98.0 86 18 113/61 (21) 86 I&O- Last 24 Hours up to 6 AM 12/14/16 06:00 Intake Total 30 ml Output Total 0 ml Balance 30 ml Laboratory Data 24H LABS Laboratory Tests 2 12/14/16 05:10: Prothrombin Time 21.8H, Prothromb Time International Ratio 1.89, Anion Gap 7L, Glomerular Filtration Rate 18.0L, Blood Urea Nitrogen 14, Creatinine 3.52H, Sodium Level 140, Potassium Level 3.7, Chloride Level 106, Carbon Dioxide Level 27, Calcium Level 8.6L, Phosphorus Level 2.5, Aspartate Amino Transf (AST/SGOT) 40H, Alanine Aminotransferase (ALT/SGPT) 18, Alkaline Phosphatase 192H, Total Bilirubin 1.1H, Total Protein 5.3L, Albumin 1.8L, Magnesium Level 2.2, Albumin/ Globulin Ratio 0.51L CBC/BMP Laboratory Tests 12/14/16 05:10 Red Blood Count 2.48 L, Mean Corpuscular Volume 106.8 H, Mean Corpuscular Hemoglobin 35.1 H, Mean Corpuscular Hemoglobin Concent 32.8, Red Cell Distribution Width 16.9 H, Calcium Level 8.6 L, Phosphorus Level 2.5, Aspartate Amino Transf (AST/SGOT) 40 H, Alanine Aminotransferase (ALT/SGPT) 18, Alkaline Phosphatase 192 H, Total Bilirubin 1.1 H, Total Protein 5.3 L, Albumin 1.8 L Microbiology Microbiology 12/09/16 Blood Culture - Preliminary, Resulted No Growth after 72 hours. All specime... 12/13/16 Clostridium difficile (PCR) - Final, Complete SUSANNA HAQUE DO Dec 14, 2016 15:20
[2016-12-14 16:00] VITALS: BP 114/60
--- NOTE | 2016-12-14 18:56 | IPN ---
DATE: 12/14/2016 SUBJECTIVE: Patient was seen and examined at the bedside today in the morning. He was getting hemodialysis done today. He does not have any active complaints. REVIEW OF SYSTEMS: Patient denies any fevers, chills, rigors, headache, nausea, vomiting, chest pain, or shortness of breath. OBJECTIVE: VITAL SIGNS: Temperature is 98 degrees Fahrenheit, blood pressure is 113/61, pulse is 86, respiratory rate of 18, saturating 95% on nasal cannula at 3 liters. INTAKE AND OUTPUT: Urine output is not recorded. Weight in the bed scale is 83.8 kg. PHYSICAL EXAMINATION: GENERAL: Patient is awake, alert, oriented times two. Laying in bed in no apparent distress. HEAD AND NECK EXAM: Extraocular muscles intact. Pupils equally round and reactive to light. Mucous membranes are moist. Neck is supple. There is no jugular venous distention (JVD). CARDIOVASCULAR: S1, S2. Regular rate. No murmur, rub or gallop. RESPIRATORY: Chest is clear to auscultation bilaterally. Bilateral equal air entry. No rales or rhonchi. Patient has a right anterior chest wall pacemaker/defibrillator. ATRIOVENTRICULAR (AV) ACCESS: Patient has a right internal jugular (IJ), nontunneled hemodialysis catheter at this time. ABDOMEN: Is soft. Positive bowel sounds. Nontender. No ascites. No organomegaly. EXTREMITIES: Patient has multiple scabs on the forearms. Pulses are 2+. There is no lower extremity edema. CENTRAL NERVOUS SYSTEM: Patient is oriented times two. Power is 5/5 in bilateral upper extremities. LABORATORY REVIEW: CBC showed a WBC of 6.9, hemoglobin 8.7, platelets at 216. BMP showed sodium 140, potassium 3.7, chloride 106, bicarbonate 27, BUN is 14, creatinine 3.5, albumin is 1.8, calcium 8.6, phosphorus 2.5, magnesium 2.2. MICROBIOLOGY: Clostridium (C) difficile was negative yesterday. CURRENT INPATIENT MEDICATIONS: Patient's medications were all reviewed by me. There is no change in the medications today except the start of as needed Ambien for insomnia. ASSESSMENT AND PLAN: 1. Acute anuric renal failure. Patient is hemodialysis dependent at this time. Patient is being dialyzed again today. We shall try to do an ultrafiltration of about 1 liter, as tolerate by his blood pressure. We shall continue to monitor the patient for signs of improvement of renal function. 2. Anemia in end-stage renal disease. Patient's hemoglobin is 8.7. He continues to be on Aranesp 100 mcg IV with hemodialysis once a week. 3. Protein calorie malnutrition. Patient has decreased oral intake. Continue multivitamin. Continue Megace 400 mg by mouth daily. 4. Hypertension. Blood pressure is acceptable at this time. Continue current dose of Coreg 3.125 mg by mouth twice a day. 5. Dialysis access. Patient has a temporary dialysis catheter in the right internal jugular (IJ). He will get a tunneled hemodialysis catheter placed on Friday. After that, his anticoagulation can be resumed.
[2016-12-14 20:00] VITALS: BP 106/59
[2016-12-14] MEDS: cefTRIAXone SOD 1 GM in D5W MINI-BAG PLUS 50 ML IV SCH (20:14)
[2016-12-14] MEDS: ATORVASTATIN 20 MG TAB PO SCH (20:14)
[2016-12-14] MEDS: rOPINIRole 1MG TAB PO SCH (20:46)
[2016-12-14] MEDS: FLUTICASONE PROP 0.05% NASAL SPRAY 16 GM (FLONASE) SCH (20:47)
[2016-12-14 23:59] VITALS: BP 116/68
[2016-12-15 04:45] VITALS: BP 111/57
[2016-12-15] MEDS: SODIUM CHLORIDE 0.9% INJ 10 ML SYR IV SCH ×3 (05:24→21:25)
[2016-12-15 06:04] LABS: MEAN CORPUSCULAR HEMOGLOBIN 35.4 pg (27.0-33.0); MEAN CORPUSCULAR HGB CONC 32.9 g/dl (32.0-36.5); MEAN CORPUSCULAR VOLUME 107.4 fl (80.0-96.0); RED CELL DISTRIBUTION WIDTH 17.1 % (11.5-14.5); WHITE BLOOD COUNT 8.1 K/mm3 (4.0-10.0)
[2016-12-15 06:07] LABS: INR 1.88
[2016-12-15 06:31] LABS: ALBUMIN 1.9 GM/DL (3.2-5.2); ALBUMIN/GLOBULIN RATIO 0.51 (1.00-1.93); BILIRUBIN,TOTAL 1.1 MG/DL (0.2-1.0); CALCIUM LEVEL 8.6 MG/DL (8.8-10.2); CREATININE FOR GFR 2.73 MG/DL (0.70-1.30); GLOMERULAR FILTRATION RATE 24.1 (>42); MAGNESIUM LEVEL 2.1 MG/DL (1.8-2.4); PHOSPHORUS LEVEL 2.4 MG/DL (2.5-4.9); POTASSIUM SERUM 3.7 MEQ/L (3.5-5.1); TOTAL PROTEIN 5.6 GM/DL (6.4-8.2)
[2016-12-15 08:00] VITALS: BP 124/73
--- NOTE | 2016-12-15 08:32 | IPN ---
DATE: 12/15/2016 Dhruv is seen in the progressive care unit (PCU). He is a patient of Dr. Nava and primarily a nephrology patient. He has been seen by nephrology on a daily basis. He has anuric renal failure and is now dialysis dependent. He is having chronic diarrhea and has a rectal tube in. He has history of anemia from end stage renal disease, protein calorie malnutrition of a moderate degree and hypertension. Per nursing staff, he is stable from yesterday. Blood pressure 111/57. Pulse 54. Respiratory rate 20. 96% oxygen saturation. Lungs: Clear. Heart: Regular rate and rhythm. Abdomen: Soft. Nontender. No peripheral edema. LABS: Hemoglobin 9. Potassium 3.7. Albumin 1.9. IMPRESSION: 1. Anuric acute renal failure. Per nephrology. 2. Diarrhea. Clostridium difficile is negative. Rectal tube is necessary per staff. 3. Congestive heart failure with reduced ejection fraction of 45% on previous echocardiogram. Stable. Seems well compensated. 4. Atrial fibrillation. Rate is controlled. Warfarin is on hold. He is getting a PermaCath Friday. Warfarin needs to be restarted after that. 5. Endocarditis with methicillin-sensitive Staphylococcus aureus (MSSA) bacteremia, transesophageal echocardiogram done at [facility]. On Rocephin. The plan is to continue this for a total of 10 days of therapy.
[2016-12-15] MEDS: NYSTATIN 100,000 UNITS/GM TOPICAL PWD 15 GM TOP SCH ×2 (09:25→21:24)
[2016-12-15] MEDS: FOLIC ACID 1 MG TAB PO SCH (09:26)
[2016-12-15] MEDS: FLUTICASONE PROP 0.05% NASAL SPRAY 16 GM (FLONASE) SCH ×2 (09:26→21:24)
[2016-12-15] MEDS: FLUoxetine 20 MG CAP PO SCH ×2 (09:26→20:14)
[2016-12-15] MEDS: FERROUS GLUCONATE 324 MG TAB PO SCH (09:26)
[2016-12-15] MEDS: DIAPER RELIEF PASTE (DESITIN) 60GM TOP PRN (09:26)
[2016-12-15] MEDS: MULTIVITAMINS/MINERALS THERAP 1 TAB PO SCH ×2 (09:26→20:14)
[2016-12-15] MEDS: MEGESTROL SUSP 400 MG/10 ML UDC PO SCH (09:26)
[2016-12-15] MEDS: CARVedilol 3.125 MG TAB PO SCH ×2 (09:27→20:14)
[2016-12-15 12:00] VITALS: BP 103/62
[2016-12-15 15:45] VITALS: BP 107/59
[2016-12-15 19:55] VITALS: BP 113/60
[2016-12-15] MEDS: zolPIDEM TARTRATE 10MG TAB PO PRN (20:14)
[2016-12-15] MEDS: rOPINIRole 1MG TAB PO SCH (20:15)
[2016-12-15] MEDS: ATORVASTATIN 20 MG TAB PO SCH (20:15)
[2016-12-15] MEDS: cefTRIAXone SOD 1 GM in D5W MINI-BAG PLUS 50 ML IV SCH (20:15)
[2016-12-15 23:36] VITALS: BP 110/58
[2016-12-16 03:32] VITALS: BP 123/66
[2016-12-16] MEDS: SODIUM CHLORIDE 0.9% INJ 10 ML SYR IV SCH ×3 (05:08→22:04)
[2016-12-16 05:33] LABS: MEAN CORPUSCULAR HEMOGLOBIN 35.8 pg (27.0-33.0); MEAN CORPUSCULAR HGB CONC 32.5 g/dl (32.0-36.5); MEAN CORPUSCULAR VOLUME 110.1 fl (80.0-96.0); RED CELL DISTRIBUTION WIDTH 19.2 % (11.5-14.5); WHITE BLOOD COUNT 8.5 K/mm3 (4.0-10.0)
[2016-12-16 05:41] LABS: INR 1.84
[2016-12-16 05:43] LABS: ALBUMIN 1.9 GM/DL (3.2-5.2); ALBUMIN/GLOBULIN RATIO 0.5 (1.00-1.93); CREATININE FOR GFR 3.59 MG/DL (0.70-1.30); GLOMERULAR FILTRATION RATE 17.6 (>42); MAGNESIUM LEVEL 2.1 MG/DL (1.8-2.4); PHOSPHORUS LEVEL 3.1 MG/DL (2.5-4.9); POTASSIUM SERUM 3.8 MEQ/L (3.5-5.1); TOTAL PROTEIN 5.7 GM/DL (6.4-8.2)
[2016-12-16 08:00] VITALS: BP 110/58
[2016-12-16] MEDS: MEGESTROL SUSP 400 MG/10 ML UDC PO SCH (09:25)
[2016-12-16] MEDS: FLUoxetine 20 MG CAP PO SCH ×2 (09:26→22:05)
[2016-12-16] MEDS: FOLIC ACID 1 MG TAB PO SCH (09:26)
[2016-12-16] MEDS: CARVedilol 3.125 MG TAB PO SCH ×2 (09:26→22:05)
[2016-12-16] MEDS: FLUTICASONE PROP 0.05% NASAL SPRAY 16 GM (FLONASE) SCH ×2 (09:26→22:04)
[2016-12-16] MEDS: FERROUS GLUCONATE 324 MG TAB PO SCH (09:26)
[2016-12-16] MEDS: MULTIVITAMINS/MINERALS THERAP 1 TAB PO SCH ×2 (09:26→22:05)
[2016-12-16] MEDS: NYSTATIN 100,000 UNITS/GM TOPICAL PWD 15 GM TOP SCH ×2 (09:26→22:06)
[2016-12-16 12:00] VITALS: BP 115/53
--- NOTE | 2016-12-16 12:11 | IPN ---
DATE OF SERVICE: 12/15/2016 SUBJECTIVE: Patient was seen and examined at the bedside today morning. On the floor, he is otherwise hemodynamically stable. He is still oliguric. He continues to have a rise in creatinine. Patient was dialyzed yesterday. He tolerated the hemodialysis procedure well. REVIEW OF SYSTEMS: Patient is unable to provide any reliable review of systems. He is oriented times two, but he denies any chest pain, shortness of breath, fever, pain abdomen at this time. OBJECTIVE: VITAL SIGNS: Temperature is 98.5 degrees Fahrenheit. Blood pressure is 113/60. Pulse is 58, respiratory rate of 18, saturating 100% on nasal cannula at 3 liters. INTAKE AND OUTPUT: Urine output is not recorded at this time. Patient got hemodialysis done yesterday. Ultrafiltration with hemodialysis was 1 liter. Weight in the bed scale is 84.6 kg. PHYSICAL EXAMINATION: GENERAL: Patient is awake, alert, oriented times two, lying in bed in no apparent distress. HEAD AND NECK EXAM: Extraocular muscles intact. Pupils equally round and reactive to light. Mucous membranes are moist. Neck is supple. There is no jugular venous distention (JVD). Patient has a temporary nontunneled hemodialysis catheter in the right internal jugular (IJ) and he has a triple-lumen catheter in the left IJ. CARDIOVASCULAR: S1, S2. Regular rate. No murmur, rub or gallop. RESPIRATORY: Chest is clear to auscultation bilaterally. Bilateral equal air entry. No rales or rhonchi. Patient has a right anterior chest wall pacemaker/defibrillator. ATRIOVENTRICULAR (AV) ACCESS: As mentioned above, patient has a right internal jugular IJ nontunneled hemodialysis catheter. ABDOMEN: Soft. Positive bowel sounds. Nontender. No ascites. Patient has a rectal tube at this time. EXTREMITIES: Patient has multiple scabs on the forearms. Pulses are 2+. There is no lower extremity edema. CENTRAL NERVOUS SYSTEM: Patient is oriented times two. Power is 5/5 in bilateral upper extremities. LABORATORY REVIEW: CBC showed a WBC of 8.1, hemoglobin 9, platelets are 242. INR is 1.8. BMP showed sodium 138, potassium 3.7, chloride 103, bicarbonate 28, BUN 11, creatinine is 2.7, albumin is 1.9. Microbiology: No cultures are available at this time. CURRENT INPATIENT MEDICATIONS: Patient's inpatient medications were all reviewed by me. There is no change in the medications today as compared with yesterday. ASSESSMENT AND PLAN: 1. Acute anuric renal failure. Patient is currently hemodialysis dependent. He was dialyzed yesterday. One liter of fluid was removed. I do not see any urine output recorded at this time and there are no signs of renal recovery at this moment. 2. Anemia in end-stage renal disease. Patient's hemoglobin is 9, which is improving; however, it is still suboptimal. Continue current dose of Aranesp 100 mcg intravenously (IV) with hemodialysis. 3. Protein calorie malnutrition. Patient has a very low oral intake. Continue multivitamins. Continue Megace 400 mg by mouth daily. 4. Hypertension. Blood pressure is acceptable at this time. Continue current dose of Coreg 3.125 mg by mouth twice a day. 5. Dialysis access. Patient is supposed to get a tunneled hemodialysis catheter placed tomorrow. 6. Social issues. I discussed the patient's current status with patient's , Mrs. Villagran. I explained that patient is hemodialysis dependent at this time. We cannot anticipate the time of renal recovery. She will discuss the current prognosis with the family members and inform us about the further goals of care by tomorrow. At this time, she wants to continue the current care. We shall continue to dialyze this patient three times a week and patient will get a tunneled hemodialysis catheter placed tomorrow.
--- NOTE | 2016-12-16 12:14 | IPN ---
DATE: 12/16/2016 Dhruv is seen in PCU. He has anuric acute renal failure superimposed on chronic kidney disease and now dialysis dependent. He has a right IJ catheter and has a tunneling catheter planned for today. Nursing staff approached me, apparently his Princess had called and was requesting comfort measures. The patient has end stage heart disease with an ejection fraction apparently of 20%, although the most recent echocardiogram I see has a 45% ejection fraction, atrial fibrillation, currently being treated for endocarditis and has diarrhea to the point requiring a rectal tube with negative C. Difficile. PHYSICAL EXAMINATION: 110/58, pulse 85, respiratory rate 18, 99% oxygen saturation on 3 liters. General appearance: He is lying in bed. He was a little confused, but after some orientation, he knew his location, he knew he was in [place] at [facility]. He identified Dr. Quintero as his physician and identified Princess as his . No jugular venous distention (JVD). Lungs decreased breath sounds, rales both bases. Heart regular rate and rhythm. 1-2/6 holosystolic murmur at the apex. Abdomen is soft, nontender. No peripheral edema. Right IJ catheter. Multiple dressed abrasions on his upper extremities. LABORATORIES: Hemoglobin is 8.7, potassium is 3.8, creatinine is 3.5. IMPRESSION: 1. Acute anuric renal failure superimposed on chronic kidney disease now requiring dialysis. I spoke with the patient about his condition. He is oriented enough that I believe he understands the implications of his decision making. I told him that he could make the decision to stop dialysis and go on comfort measures. Stopping dialysis would mean that he would of kidney failure, probably within a week to two weeks. He indicated that he wanted to continue dialysis, and he says he wanted "more time." We discussed that after discharge he would require three time per week dialysis sessions and he understood this ad said that he would "try that." His main object is to get home. He may well change his mind about ongoing dialysis after is home and has to make the trip to the dialysis center a few times. I called Princess, his . I indicated that I cannot put this patient on comfort measures without his consent as he is oriented enough to make his own decisions and she accepts and understands this. 2. Diarrhea. Rectal tube is in place. C. difficile is negative. 3. Congestive heart failure (CHF). Decreased ejection fraction compensated on exam. Volume management by dialysis. 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 He is supposed to complete 10 days of this. 5. Atrial fibrillation. Warfarin is on hold for PermaCath today. Should be restarted tomorrow.
[2016-12-16] MEDS: ACETAMINOPHEN TAB 650MG DOSE (2X325MG) PO PRN (15:13)
[2016-12-16 16:00] VITALS: BP 108/60
[2016-12-16 19:51] VITALS: BP 106/60
--- NOTE | 2016-12-16 21:33 | IPN ---
DATE: 12/16/2016 SUBJECTIVE: Patient was seen and examined at the bedside today in the morning. He continues to be obtunded, unable to communicate. He answers a few questions. He is still anuric at this time and creatinine continues to rise in between dialysis sessions. REVIEW OF SYSTEMS: Patient is unable to provide any reliable review of systems at this time. He is obtunded and confused, answers few questions. OBJECTIVE: VITAL SIGNS: Temperature is 98.1 degrees Fahrenheit, blood pressure 115/53, pulse is 85, respiratory rate of 20, saturating 97% on nasal cannula at three liters per minute. Intake and output: Urine output is not recorded at this time. Weight in the bed scale is 89.1 kg. PHYSICAL EXAMINATION: GENERAL: Patient is awake, alert, oriented times one, laying in bed, no apparent distress. Very sleepy and drowsy. HEAD and NECK EXAM: Extraocular muscles intact. Pupils equally round and reactive to light. Mucous membranes are moist. Neck is supple. There is no jugular venous distention (JVD). Patient has a temporary nontunneled hemodialysis catheter in the right internal jugular (IJ). CARDIOVASCULAR: S1, S2, regular rate. No murmur, rub, or gallop. RESPIRATORY: Chest is clear to auscultation bilaterally. Bilateral equal air entry. No rales or rhonchi. ABDOMEN: Soft, positive bowel sounds. Nontender. No ascites. Patient has a rectal tube at this time. EXTREMITIES: Patient has multiple scabs in the forearms. Pulses are 2+. There is no lower extremity edema. CENTRAL NERVOUS SYSTEM: Patient is oriented times one, sleepy and drowsy, follows few commands. Moves extremities. LABORATORY REVIEW: CBC shows a WBC of 8.5, hemoglobin 8.7, platelets are 244. INR is 1.8. BMP shows sodium 139, potassium 3.8, chloride 103, bicarbonate 28, BUN 14, creatinine is 3.5, calcium is 9, phosphorous 3.1, magnesium 2.1. CURRENT INPATIENT MEDICATIONS: Patient's medications were all reviewed by me. There is no change in the medications today as compared with yesterday. ASSESSMENT AND PLAN: 1. Acute anuric renal failure. There are no signs of renal improvement at this time. Patient will get dialysis tomorrow as per his regular schedule. I have discussed patient's current status with his family members. Family wants to discontinue the current care and stop the hemodialysis, however patient wants to continue the hemodialysis at this time. 2. Anemia in end-stage renal disease. Hemoglobin is 8.7 which is suboptimal at this time. Continue current dose of Aranesp 100 mcg IV with dialysis. If needed, dose will be increased. 3. Dialysis access. Patient will get a tunneled hemodialysis catheter placed tomorrow after hemodialysis. 4. Social issues. Patient still wants to continue with current care. His family, including his and son, want to discontinue dialysis and make him comfort measures. I will continue the dialysis at this moment. Patient will likely need to be evaluated by psychiatry service as well. GRICELDA
[2016-12-16] MEDS: cefTRIAXone SOD 1 GM in D5W MINI-BAG PLUS 50 ML IV SCH (22:03)
[2016-12-16] MEDS: rOPINIRole 1MG TAB PO SCH (22:04)
[2016-12-16] MEDS: ATORVASTATIN 20 MG TAB PO SCH (22:05)
[2016-12-16 23:59] VITALS: BP 113/64
[2016-12-17] MEDS: ACETAMINOPHEN TAB 650MG DOSE (2X325MG) PO PRN ×2 (00:28→16:17)
[2016-12-17 04:00] VITALS: BP 105/56
[2016-12-17] MEDS: SODIUM CHLORIDE 0.9% INJ 10 ML SYR IV SCH ×3 (06:27→21:12)
[2016-12-17] MEDS: MEGESTROL SUSP 400 MG/10 ML UDC PO SCH (06:28)
[2016-12-17] MEDS: FLUTICASONE PROP 0.05% NASAL SPRAY 16 GM (FLONASE) SCH ×2 (06:28→21:12)
[2016-12-17] MEDS: FOLIC ACID 1 MG TAB PO SCH (06:28)
[2016-12-17] MEDS: FLUoxetine 20 MG CAP PO SCH ×2 (06:28→21:11)
[2016-12-17] MEDS: FERROUS GLUCONATE 324 MG TAB PO SCH (06:28)
[2016-12-17] MEDS: MULTIVITAMINS/MINERALS THERAP 1 TAB PO SCH ×2 (06:28→21:11)
[2016-12-17] MEDS: NYSTATIN 100,000 UNITS/GM TOPICAL PWD 15 GM TOP SCH ×2 (06:29→21:12)
[2016-12-17 08:00] VITALS: BP 121/65
[2016-12-17 09:07] LABS: MEAN CORPUSCULAR HEMOGLOBIN 36.3 pg (27.0-33.0); MEAN CORPUSCULAR HGB CONC 33.1 g/dl (32.0-36.5); MEAN CORPUSCULAR VOLUME 109.9 fl (80.0-96.0); RED CELL DISTRIBUTION WIDTH 20.3 % (11.5-14.5); WHITE BLOOD COUNT 8.1 K/mm3 (4.0-10.0)
[2016-12-17 09:19] LABS: CALCIUM LEVEL 8.8 MG/DL (8.8-10.2); CREATININE FOR GFR 4.29 MG/DL (0.70-1.30); GLOMERULAR FILTRATION RATE 14.3 (>42); POTASSIUM SERUM 3.4 MEQ/L (3.5-5.1)
[2016-12-17 12:30] VITALS: BP 115/60
[2016-12-17] MEDS: CARVedilol 3.125 MG TAB PO SCH ×2 (13:06→21:11)
--- NOTE | 2016-12-17 14:52 | IPNPDOC ---
Subjective Date Seen The patient was seen on 12/17/16. Subjective Chief Complaint/HPI The patient is a 81-year-old male admitted with a reason for visit of Acute Renal Failure. General: Denies: Chills, Night Sweats Constitutional: Denies: Chills, Fever Eyes: Denies: Pain, Vision change ENT: Denies: Head Aches, Ear Pain Skin: Denies: Rash, Lesions Pulmonary: Denies: Dyspnea, Cough Cardiovascular: Denies: Chest Pain, Palpitations Gastrointestinal: Denies: Nausea, Vomiting Genitourinary: Denies: Dysuria, Frequency Objective Physical Examination General Exam: Positive: Alert, Cooperative, No Acute Distress ENT Exam: Positive: Atraumatic, Mucous membr. moist/pink Neck Exam: Negative: JVD Chest Exam: Positive: Diminished, Negative: Rhonchi, Wheezing Heart Exam: Positive: Rate Normal, Normal S1, Normal S2, Other (+II/ systolic murmur along the sternal border on the left ) Abdomen Exam: Positive: Soft, Negative: Tenderness Extremity Exam: Negative: Tenderness, Swelling Assessment /Plan Plan/VTE VTE Prophylaxis Ordered?: Yes (SCDs/TEDs) Plan/Urinary Catheter Reason for insertion/continuin: Critical Pt monitoring Plan Acute Anuric Renal Failure requiring dialysis Patient has a Right IJ tunneled catheter Patient scheduled for permacath placement today Nephrology on board [facility] Bacteremia 2/2 Presumptive Infective Endocarditis Patient scheduled to finish Abx course on 12/19/16 Hx of C Diff GI Panel negative here However the patient is still having some diarrhea-->Rectal Tube in place We will cont to monitor Atrial Fibrillation, rate controlled Not on AC at this time given Permacath placement Cont Coreg We will resume AC once the permacath is placed Hx of CAD, Bioprosthetic Valve Replacement Cont Coreg, Statin We will resume Coumadin tomorrow Hx of Diastolic Congestive Heart Failure Volume management via dialysis Depression/Anxiety Cont Current Regimen Dyslipidemia Cont statin Hx of CVA Cont Statin Restless Leg syndrome Cont Ropinirole DVT Prophylaxis (SCD/TEDs) Disposition-at this time a psychiatry consultation has been sought to determine the patient's capacity to make medical decisions. VS, I&O, 24H, Fishbone Vital Signs/I&O Vital Signs Date Time Temp Pulse Resp B/P (MAP) Pulse Ox O2 Delivery O2 Flow Rate FiO2 12/17/16 13:06 78 115/60 12/17/16 12:30 98.7 22 98 Nasal Cannula 2.0 I&O- Last 24 Hours up to 6 AM 12/17/16 06:00 Intake Total 50 ml Output Total 650 ml Balance -600 ml Laboratory Data 24H LABS Laboratory Tests 2 12/17/16 08:40: Anion Gap 7L, Glomerular Filtration Rate 14.3L, Blood Urea Nitrogen 18, Creatinine 4.29H, Sodium Level 140, Potassium Level 3.4L, Chloride Level 104, Carbon Dioxide Level 29, Calcium Level 8.8 CBC/BMP Laboratory Tests 12/17/16 08:40 Red Blood Count 2.43 L, Mean Corpuscular Volume 109.9 H, Mean Corpuscular Hemoglobin 36.3 H, Mean Corpuscular Hemoglobin Concent 33.1, Red Cell Distribution Width 20.3 H, Calcium Level 8.8 Microbiology Microbiology 12/09/16 Blood Culture - Final, Complete NO GROWTH AFTER 5 DAYS 12/13/16 Clostridium difficile (PCR) - Final, Complete SANTI BURR MD Dec 17, 2016 14:52
[2016-12-17 16:15] VITALS: BP 118/60
--- NOTE | 2016-12-17 19:27 | IPN ---
DATE: 12/17/2016 SUBJECTIVE: Patient was seen and examined at the bedside today morning during hemodialysis procedure. Patient was tolerating the hemodialysis procedure well. There was no apparent distress in the morning. REVIEW OF SYSTEMS: Patient denies any fevers, chills, rigors, headache, nausea, vomiting, chest pain, shortness of breath, or pain in abdomen. Rest of review of systems is negative. OBJECTIVE: Vital signs: Temperature is 97.8 degrees Fahrenheit, blood pressure is 121/65, pulse is 85, respiratory rate of 20, saturating 99% on nasal cannula at 2 liters. Intake and output: Urine output is not recorded. Stool output was 650 mL yesterday. Weight in the bed scale is 85.6 kg today. PHYSICAL EXAMINATION: GENERAL: Patient is awake, alert, oriented times two, lying in bed. No apparent distress. Getting hemodialysis done. HEAD AND NECK: Extraocular muscles intact. Pupils equally round and reactive to light. Mucous membranes are moist. Neck is supple. There is no jugular venous distention (JVD). Patient has a temporarily non-tunneled right internal jugular (IJ) hemodialysis catheter, which is being used for hemodialysis at this time. CARDIOVASCULAR: S1, S2, regular rate. No murmur, rub, or gallop. RESPIRATORY: Chest is clear to auscultation bilaterally. Bilateral equal air entry. No rales or rhonchi. ABDOMEN: Soft. Positive bowel sounds. Nontender. No ascites. Patient as a rectal tube at this time. EXTREMITIES: Patient has multiple scabs in the forearms. Pulses are 2+. There is no lower extremity edema. CENTRAL NERVOUS SYSTEM: Patient is oriented times two, able to follow commands and communicate. LABORATORY REVIEW: CBC showed a WBC of 8.1, hemoglobin 8.8, platelets are 225. BMP showed sodium 140, potassium 3.4, chloride 104, bicarbonate is 29, BUN is 18, creatinine is 4.2. CURRENT INPATIENT MEDICATIONS: Patient's medications were all reviewed by me. There is no change in the medications today as compared with yesterday. ASSESSMENT AND PLAN: 1. Acute anuric renal failure. Patient continues to be dialysis dependent. He is being dialyzed today. He is tolerating the procedure well. Patient wants to continue the hemodialysis at this time. 2. Anemia and end-stage renal disease. Hemoglobin is 8.8, which is slightly suboptimal. No need of blood transfusion at this time. Continue current dose of Aranesp 100 mcg intravenous (IV) with hemodialysis. 3. Dialysis access. Patient will get tunneled hemodialysis catheter placed today after dialysis. 4. Social issues. Patient's family wants to withdraw care; however, patient is oriented times two. He is making his decisions at this time. He wants to continue the hemodialysis, and he does not want to give up. At this time, I will continue to offer hemodialysis to this patient.
[2016-12-17 20:00] VITALS: BP 108/62
[2016-12-17] MEDS: ATORVASTATIN 20 MG TAB PO SCH (21:11)
[2016-12-17] MEDS: rOPINIRole 1MG TAB PO SCH (21:11)
[2016-12-17] MEDS: cefTRIAXone SOD 1 GM in D5W MINI-BAG PLUS 50 ML IV SCH (21:12)
[2016-12-18 04:00] VITALS: BP 108/59
[2016-12-18] MEDS: SODIUM CHLORIDE 0.9% INJ 10 ML SYR IV SCH ×3 (05:36→21:16)
[2016-12-18 06:03] LABS: INR 1.86
[2016-12-18 06:09] LABS: MEAN CORPUSCULAR HEMOGLOBIN 35.5 pg (27.0-33.0); MEAN CORPUSCULAR HGB CONC 32.1 g/dl (32.0-36.5); MEAN CORPUSCULAR VOLUME 110.8 fl (80.0-96.0); RED CELL DISTRIBUTION WIDTH 20.9 % (11.5-14.5); WHITE BLOOD COUNT 8.3 K/mm3 (4.0-10.0)
[2016-12-18 06:17] LABS: CALCIUM LEVEL 8.7 MG/DL (8.8-10.2); CREATININE FOR GFR 3.15 MG/DL (0.70-1.30); GLOMERULAR FILTRATION RATE 20.4 (>42); POTASSIUM SERUM 3.9 MEQ/L (3.5-5.1)
--- NOTE | 2016-12-18 06:20 | CR ---
DATE OF CONSULTATION: 12/17/2016 CHIEF COMPLAINT: The patient does not offer a complaint as such, but suggests that he does not feel well. SUBJECTIVE: He is [id number]. He is . He and his have been together, per the patient, more than 60 years. Says he has a son who works in [place]. Patient lives with his and [id number]. I have been asked to see this patient to make an assessment regarding his capacity to make medical decisions. The chart is reviewed. The patient is interviewed, history is also obtained from the nurse working with him on the current shift, who has seen the patient this evening, spoken with him about his concerns, and has informed me that he has been quite coherent, and there has been no confusion. He has several medical problems, and currently has acute renal failure, which is thought to be superimposed on chronic end stage renal disease. He also has had, earlier this year, in August, an aortic valve replacement at [facility]. He was later admitted for complications of bacteremia. He was thought to have endocarditis, and the treatment was further complicated by Clostridium difficile infection. He was started on oral antibiotics. He apparently signed himself out against medical advice at [facility] a couple of weeks or so ago, on December 04, and at the time was considering Hospice care. He then became, soon afterwards, quite weak, had decompensated congestive heart failure, went to [facility], was transferred here, with the aim of Hospice as rehabilitation. He developed acute on chronic renal failure, and during his stay here, has been on dialysis. He is currently dependent on dialysis. From that I understand, he has wished to continue treatment, though his family, , have also suggested "comfort measures". The clinicians have seen him, including the oyster shipper, and more recently Dr. Trejo, and have felt that he has had the ability to make decisions regarding his care, he wishes to continue with current treatment. I understand there are some concerns of not being able to look after him at home. The patient is able to narrate recent history, and indicates why he was admitted to [facility], and when he had the aortic valve replaced. He also suggests that he had gone home, felt unwell, said he had fallen on a couple of occasions, and then was admitted to [facility], and then here. He says he had infection in his blood, which is treated. He is able to indicate why he is on dialysis, and its purpose, and he sees it as cleansing the blood, and "returning it to the body in half decent shape". These are his words. Says wants to continue with treatments, but that he is aware that he will eventually , and he comments we all will. Also suggests that if the Lord wants to take him, he will. Patient says he would prefer being with family, at home, so he can spend time with them, and do the things that he is able to, provided he is able to, before he dies. He also suggests that if he is to go home, he will require quite a bit of assistance, as would his , who he says has limited abilities herself. He is also confident he may be able to get assistance when he leaves the hospital. He also indicates that he wishes to make his own decisions, and that if he is not able to, his will. He denies any suicidal thoughts or intents. Says is looking forward to seeing his son, he suggests he will be here this weekend, from [place]. PAST PSYCHIATRIC HISTORY: I am unaware of any, but review of his medications reveals he is on Prozac, he is also on donepezil, so presumably there is some element of dementia. MEDICAL HISTORY: As indicated above, has several medical problems, including currently acute on chronic renal failure. There is a possibility of nephrotoxicity from antibiotics, and dehydration as well, in the past. He has also had an aortic valve replaced recently as indicated above. Has had coronary artery disease, has had stents, and coronary artery bypass graft (CABG). According to the chart, he has a history of cerebrovascular accident (CVA), transient ischemic attack (TIA), atrial fibrillation, presumptive infectious endocarditis in the past, congestive heart failure. MENTAL STATUS EXAMINATION: He is lying in bed, he is in hospital clothes. He also has an IV drip going, and nasal cannula. He is cooperative. It should be noted he was seen in the presence of the nurse assigned to him. There is no agitation. No psychomotor retardation. He is a bit hard of hearing, but he is coherent. Answers questions logically, coherently. There is no formal thought disorder. Affect is reactive, quite broad. No evidence of any thoughts of harming himself or anyone else. He does not at present appear to be internally preoccupied. No delusional ideations are elicited. No fluctuation of consciousness is noted. He is alert. He is oriented to place and person, not fully to time, he knew it was then end of November 2016, knew the day of the week, but not the exact date. He is able to recite three digits forwards, as well as backwards. He is able to recall one out of three objects after 5 minutes. Intellect is average. Judgment is good. Insight is fair to good. ASSESSMENT: Recent delirium, multifactorial, most likely secondary to metabolic factors. Currently there is no evidence of delirium, he is able to narrate his history, and the course of treatment as well. He has several medical problems, complications, including acute on chronic renal failure. He is on dialysis, and is dependent on it now. He is able to indicates its purposes, the consequences of stopping it as well. He wishes to continue with treatment as best he can, and that if it comes to it, would wish to at home, spending time with family. He also suggests that he realizes, he would, and his would, require assistance and help when he leaves the hospital. He is cooperative, coherent, and is oriented to person, place, almost fully to time. There is no evidence of any confusion at present, his sensorium is clear. He is able to articulate his wishes at present. He has the capacity to make decisions regarding his medical care at this time. Thank you for the consult. If any questions, please call. The assessment took about 30 minutes.
[2016-12-18 08:00] VITALS: BP 97/54
[2016-12-18] MEDS: FERROUS GLUCONATE 324 MG TAB PO SCH (09:37)
[2016-12-18] MEDS: FLUoxetine 20 MG CAP PO SCH ×2 (09:37→21:15)
[2016-12-18] MEDS: MULTIVITAMINS/MINERALS THERAP 1 TAB PO SCH ×2 (09:38→21:15)
[2016-12-18] MEDS: CARVedilol 3.125 MG TAB PO SCH ×2 (09:38→21:16)
[2016-12-18] MEDS: MEGESTROL SUSP 400 MG/10 ML UDC PO SCH (09:38)
[2016-12-18] MEDS: FOLIC ACID 1 MG TAB PO SCH (09:38)
[2016-12-18] MEDS: FLUTICASONE PROP 0.05% NASAL SPRAY 16 GM (FLONASE) SCH ×2 (09:39→21:16)
[2016-12-18] MEDS: NYSTATIN 100,000 UNITS/GM TOPICAL PWD 15 GM TOP SCH ×2 (09:39→21:16)
--- NOTE | 2016-12-18 11:09 | IPNPDOC ---
Subjective Date Seen The patient was seen on 12/18/16. Subjective Chief Complaint/HPI The patient is a 81-year-old male admitted with a reason for visit of Acute Renal Failure. General: Denies: Chills, Night Sweats Constitutional: Denies: Chills, Fever Eyes: Denies: Pain, Vision change ENT: Denies: Head Aches, Ear Pain Pulmonary: Denies: Dyspnea, Cough Cardiovascular: Denies: Chest Pain, Palpitations Gastrointestinal: Denies: Nausea, Vomiting, Abdominal Pain Genitourinary: Denies: Dysuria, Frequency Hematologic: Denies: Bruising, Bleeding Excessively Objective Physical Examination General Exam: Positive: Alert, Cooperative, No Acute Distress ENT Exam: Positive: Atraumatic, Mucous membr. moist/pink Neck Exam: Negative: JVD Chest Exam: Positive: Diminished, Negative: Rhonchi, Wheezing Heart Exam: Positive: Rate Normal, Normal S1, Normal S2, Other (+II/ systolic murmur along the sternal border on the left ) Abdomen Exam: Positive: Soft, Negative: Tenderness Extremity Exam: Negative: Tenderness, Swelling Assessment /Plan Plan/VTE VTE Prophylaxis Ordered?: Yes (SCDs/TEDs) Plan Acute Anuric Renal Failure requiring dialysis Patient has a Right IJ tunneled catheter Patient scheduled for permacath placement today Nephrology on board MSSA Bacteremia 2/2 Presumptive Infective Endocarditis Patient scheduled to finish Abx course on 12/19/16 Hx of C Diff GI Panel negative here However the patient is still having some diarrhea-->Rectal Tube in place We will cont to monitor Atrial Fibrillation, rate controlled Not on AC at this time given Permacath placement Cont Coreg We will resume AC once the permacath is placed Hx of CAD, Bioprosthetic Valve Replacement Cont Coreg, Statin We will resume Coumadin tomorrow Hx of Diastolic Congestive Heart Failure Volume management via dialysis Depression/Anxiety Cont Current Regimen Dyslipidemia Cont statin Hx of CVA Cont Statin Restless Leg syndrome Cont Ropinirole DVT Prophylaxis (SCD/TEDs) Disposition-at this time a psychiatry consultation has deemed the patient capable of making medical decisions. The patient would like to continue dialysis at this time. However, he would like to go home rather than be placed in a assisted. However, there are concerns about his ability to be taken care of by his who has voiced an inability to take care of his needs. Will follow up with PFS for further delineation of disposition. VS, I&O, 24H, Fishbone Vital Signs/I&O Vital Signs Date Time Temp Pulse Resp B/P (MAP) Pulse Ox O2 Delivery O2 Flow Rate FiO2 12/18/16 09:24 Nasal Cannula 3.0 12/18/16 08:00 99.1 84 22 97/54 (68) 94 I&O- Last 24 Hours up to 6 AM 12/18/16 06:00 Intake Total 110 ml Output Total 1000 ml Balance -890 ml Laboratory Data 24H LABS Laboratory Tests 2 12/18/16 05:38: Prothrombin Time 21.5H, Prothromb Time International Ratio 1.86, Anion Gap 5L, Glomerular Filtration Rate 20.4L, Blood Urea Nitrogen 10, Creatinine 3.15H, Sodium Level 140, Potassium Level 3.9, Chloride Level 105, Carbon Dioxide Level 30, Calcium Level 8.7L CBC/BMP Laboratory Tests 12/18/16 05:38 Red Blood Count 2.33 L, Mean Corpuscular Volume 110.8 H, Mean Corpuscular Hemoglobin 35.5 H, Mean Corpuscular Hemoglobin Concent 32.1, Red Cell Distribution Width 20.9 H, Calcium Level 8.7 L Microbiology Microbiology 12/09/16 Blood Culture - Final, Complete NO GROWTH AFTER 5 DAYS 12/13/16 Clostridium difficile (PCR) - Final, Complete SANTI BURR MD Dec 18, 2016 11:09
--- NOTE | 2016-12-18 13:00 | IPN ---
DATE OF SERVICE: 12/18/2016 SUBJECTIVE: The patient was seen and examined at the bedside today. He got the hemodialysis done yesterday. He tolerated the hemodialysis procedure well. The patient is not in any apparent distress. He is oriented times two today. The patient could not get his tunneled hemodialysis catheter yesterday because interventional radiology was busy. He is supposed to get his catheter changed today. REVIEW OF SYSTEMS: The patient denies any fevers, chills, rigors, headache, nausea, vomiting, chest pain, shortness of breath. Rest of review of systems is negative. OBJECTIVE: Vital signs: Temperature is 99.1 degrees Fahrenheit, blood pressure is 97/54, pulse is 84, respiratory rate of 16, saturating 94% on nasal cannula at 3 liters. Intake and output: Urine output is not recorded. Stool output is 700 mL today, and his ultrafiltration with hemodialysis was 1 liter yesterday. PHYSICAL EXAMINATION: GENERAL: The patient is awake, alert, oriented times two, lying in bed. No apparent distress. HEAD AND NECK EXAMINATION: Extraocular muscles intact. Pupils equally round and reactive to light. Mucous membranes are moist. Neck is supple. There is no jugular venous distention (JVD). The patient has a temporarily non-tunneled hemodialysis catheter in the right internal jugular (IJ). CARDIOVASCULAR: S1, S2, regular rate. No murmur, rub, and gallop. RESPIRATORY: Chest is clear to auscultation bilaterally. Bilateral equal air entry. No rales or rhonchi. ABDOMEN: Is soft. Positive bowel sounds. Nontender. No ascites. The patient has a rectal tube with liquid stools in the bag. EXTREMITIES: The patient has multiple scabs in the forearms. Pulses are 2+. There is no lower extremity edema. CENTRAL NERVOUS SYSTEM (PHARMACY INTAKE COORDINATOR): The patient is oriented times two. He is able to follow commands and communicate. LABORATORY REVIEW: CBC showed a WBC of 8.3, hemoglobin 8.3, platelets are 208. BMP showed sodium 140, potassium 3.9, chloride 105, bicarbonate is 30, BUN is 10, creatinine is 3.15. CURRENT INPATIENT MEDICATIONS: The patient's medications were all reviewed by me. The Rocephin has been stopped now. There is no other change in the medications today. ASSESSMENT AND PLAN: 1. Acute anuric renal failure. The patient is not making any urine. He continues to be dialysis dependent. The patient will get tunneled hemodialysis catheter placed today. 2. Anemia in end-stage renal disease. The patient's hemoglobin is dropping down to 8.3 now. Continue the Aranesp at this time. The patient will get 1 unit of packed red blood cells transfusion tomorrow morning. 3. Dialysis access. The patient will get tunneled dialysis catheter placed today. 4. Goals of care. The patient wants to continue hemodialysis and continue aggressive management at this time. The patient would likely need placement for outpatient hemodialysis.
[2016-12-18] MEDS ORDERED: HEPARIN 1,000 UNITS/ML 10ML VIAL (FOR RADIOLOGY& DIALYSIS ONLY) As Ordered ONE (15:29)
[2016-12-18] MEDS ORDERED: LIDOCAINE W/EPINEPHRINE 1% 20ML VIAL As Ordered ONE (15:30)
[2016-12-18] MEDS ORDERED: LIDOCAINE 2% MDV 20 ML VIAL As Ordered ONE (15:30)
[2016-12-18 17:00] VITALS: BP 114/73
[2016-12-18 17:15] VITALS: BP 121/76
--- NOTE | 2016-12-18 18:21 | REPKIM ---
CLINICAL HISTORY: Renal failure and significant medical comorbidities. The referring nephrology service has asked a tunneled dialysis catheter placement for dialysis. PROCEDURE PERFORMED: Right IJ Tunneled Hemodialysis Catheter Placement INTERVENTIONALIST: Susana Davis MD CONSENT: The risks, benefits and alternatives to the procedure were explained to the patient and informed written consent was obtained from the patient and witnessed. MEDICATIONS: Local Lidocaine EBL: 30 mL DEVICE USED: 14.5-Anguillan 19-cm Palindrome Catheter Lot#[id number] FLUORO TIME: 0.6 minutes PROCEDURE/FINDINGS: The patient was brought to the interventional radiology suite where a timeout procedure was performed. The patient was placed in the supine position. The right neck and upper chest were prepped and draped in the usual sterile fashion. A 19-cm tip to cuff length, 14.5-Anguillan dual lumen Palindrome hemodialysis catheter was inserted via the right IJ access. The catheter was placed through a subcutaneous tunnel requiring a second incision. Fluoroscopy was used to avoid subcutaneous internal cardiac pacemaker wires. The incision at the base of the neck was closed with 4-0 Vicryl suture and covered with steristrips. The existing temp dialysis catheter was removed in its entirety. The Palindrome catheter was secured at the skin exit site with 2-0 Prolene suture. The ports of the catheter were locked with heparin (1000 units/mL). Hemostasis was achieved by manual compression. A sterile dressing was then applied. Post procedure chest fluoroscopy showed the tip of the catheter at the cavoatrial junction. The patient tolerated the procedure well with no immediate complications. This procedure was performed using fluoroscopy. Dr. Davis was present. IMPRESSION: Successful right IJ tunneled hemodialysis catheter placement as discussed above. There is free aspiration of blood from all ports of the catheter. The catheter is ready for immediate use. cc: Conor Ndiaye MD [facility] NETWORKLeigha
[2016-12-18] MEDS: rOPINIRole 1MG TAB PO SCH (21:15)
[2016-12-18] MEDS: ATORVASTATIN 20 MG TAB PO SCH (21:15)
[2016-12-18 22:00] VITALS: BP 118/66
[2016-12-19 06:00] VITALS: BP 136/78
--- NOTE | 2016-12-19 06:30 | REPUSA ---
CLINICAL HISTORY: TLC placement. COMMENTS: Moderate left pleural effusion. Atelectatic airspace disease of the left lower lobe. The cardiac silhouette is enlarged. There is evidence for pulmonary venous congestion compatible with CHF. Pacemaker wires are in good position. Prior removal of a left pacemaker generator. Unremarkable median sternotomy wires. There is moderate central pulmonary venous congestion. Bony structures appear normal. IMPRESSION: 1. Enlarged cardiac silhouette. 2. Pulmonary venous congestion compatible with CHF. 3. Moderate left pleural effusion. 4. Passive atelectatic airspace disease of the left lower lobe. 5. Pacemaker wires are in good position. Thank you for your kind referral of this patient.
[2016-12-19] MEDS: MULTIVITAMINS/MINERALS THERAP 1 TAB PO SCH ×2 (06:52→21:23)
[2016-12-19] MEDS: FERROUS GLUCONATE 324 MG TAB PO SCH (06:52)
[2016-12-19] MEDS: FLUoxetine 20 MG CAP PO SCH ×2 (06:52→21:23)
[2016-12-19] MEDS: MEGESTROL SUSP 400 MG/10 ML UDC PO SCH (06:52)
[2016-12-19] MEDS: FOLIC ACID 1 MG TAB PO SCH (06:52)
[2016-12-19] MEDS: CARVedilol 3.125 MG TAB PO SCH ×2 (06:53→21:24)
[2016-12-19 07:09] LABS: MEAN CORPUSCULAR HEMOGLOBIN 35.7 pg (27.0-33.0); MEAN CORPUSCULAR VOLUME 111.8 fl (80.0-96.0); RED CELL DISTRIBUTION WIDTH 21.4 % (11.5-14.5); WHITE BLOOD COUNT 8.3 K/mm3 (4.0-10.0)
[2016-12-19 07:15] LABS: INR 1.74
[2016-12-19 07:27] LABS: CREATININE FOR GFR 4.06 MG/DL (0.70-1.30); GLOMERULAR FILTRATION RATE 15.2 (>42); POTASSIUM SERUM 3.6 MEQ/L (3.5-5.1)
[2016-12-19] MEDS: SODIUM CHLORIDE 0.9% INJ 10 ML SYR IV SCH ×3 (08:55→21:25)
[2016-12-19] MEDS: FLUTICASONE PROP 0.05% NASAL SPRAY 16 GM (FLONASE) SCH ×2 (08:55→21:24)
[2016-12-19] MEDS: NYSTATIN 100,000 UNITS/GM TOPICAL PWD 15 GM TOP SCH ×2 (08:56→21:24)
--- NOTE | 2016-12-19 13:55 | IPN ---
DATE: 12/19/2016 SUBJECTIVE: The patient was seen and examined at the bedside today in the morning. The patient has a one-to-one sitter in the room as well. Last 24 hour events were noted. The patient got the tunnel hemodialysis catheter placed yesterday, however, the patient was confused overnight and he pulled his dialysis catheter overnight. The patient has a compression dressing at the dialysis catheter site now. The patient is confused and obtunded. REVIEW OF SYSTEMS: The patient is unable to provide any reliable review of systems. OBJECTIVE: VITAL SIGNS: Temperature is 97.2 degrees Fahrenheit. Blood pressure is 136/78, pulse 85, oxygen saturations 99% on nasal cannula. Intake and output: Stool output recorded as 800 mL overnight. There is no urine output recorded. Bed scale weight is not available. GENERAL: The patient is awake, alert, oriented times one laying in bed in no apparent distress. HEAD AND NECK EXAM: Extraocular muscles are intact. Pupils equal, round, and reactive to light. Mucous membranes are moist. Neck is supple. The patient has a left IJ triple lumen catheter and the patient has a compression dressing at recently removed tunnel dialysis catheter. CARDIOVASCULAR: S1, S2. Regular rate. No murmur, rub or gallop. RESPIRATORY: Chest is clear to auscultation bilaterally. Bilaterally equal air entry. No rales or rhonchi. ABDOMEN: Soft, positive bowel sounds. Nontender. No ascites. The patient has a rectal tube with liquid stools in the bag. EXTREMITIES: The patient has multiple scabs on the forearms. Pulses are 2+. There is no lower extremity edema. 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 He follows some commands. He is more confused and obtunded as compared with yesterday. LAB REVIEW: Hemoglobin is 9.1, INR 1.7. BMP showed sodium 141, potassium 3.6, chloride 106, bicarbonate 29, BUN 14, creatinine 4, calcium 9. IMAGING: A chest x-ray done this morning shows pulmonary venous congestion, moderate left pleural effusion. CURRENT INPATIENT MEDICATIONS: The patient's medications are all reviewed by me. There is no change in the medications today as compared with yesterday except that his IV Rocephin has been stopped. ASSESSMENT/PLAN: 1. Acute anuric renal failure: The patient was supposed to get hemodialysis today. However, he pulled his tunnel hemodialysis catheter overnight. It is very difficult to get a catheter in this patient because of the bilateral pacer wires, high INR and he is, at this time, confused. He is not able to give any consent. The patient needs to be discussed with the family members who are already considering discontinuing current care and stopping hemodialysis. I would not get another catheter in this patient until the family meeting is done. There are no signs of renal recovery at this time. 2. Anemia and endstage renal disease: Hemoglobin is 9.1, which is acceptable at this time. No need of blood transfusion at this time. 3. Dialysis access: The patient does not have any hemodialysis access at this time. 4. Goals of care: The patient is confused and obtunded at this time. Goals of care need to be discussed with the family members. I have discussed this with the hospitalist, Dr. Thierry Ambriz.
--- NOTE | 2016-12-19 14:30 | IPNPDOC ---
Subjective Date Seen The patient was seen on 12/19/16. Subjective Chief Complaint/HPI Patient noted to pull his tunnelled hemodialysis catheter out overnight. Appeared to be more confused and agitated this morning. Objective Physical Examination General Exam: Positive: No Acute Distress ENT Exam: Positive: Atraumatic, Mucous membr. moist/pink Neck Exam: Negative: JVD Chest Exam: Positive: Diminished, Negative: Rhonchi, Wheezing Heart Exam: Positive: Rate Normal, Normal S1, Normal S2, Other (+II/ systolic murmur along the sternal border on the left ) Abdomen Exam: Positive: Soft, Negative: Tenderness Extremity Exam: Negative: Tenderness, Swelling Assessment /Plan Plan/VTE VTE Prophylaxis Ordered?: Yes (SCDs/TEDs) Plan Acute Anuric Renal Failure requiring dialysis Patient pulled Right IJ tunneled catheter overnight in a state of agitation Nephrology on board MSSA Bacteremia 2/2 Presumptive Infective Endocarditis s/p completion of Rocephin Hx of C Diff GI Panel negative here However the patient is still having some diarrhea-->Rectal Tube in place We will cont to monitor Atrial Fibrillation, rate controlled Cont Coumadin Cont Coreg Hx of CAD, Bioprosthetic Valve Replacement Cont Coreg, Statin Resume Coumadin Hx of Diastolic Congestive Heart Failure Volume management via dialysis Depression/Anxiety Cont Current Regimen Dyslipidemia Cont statin Hx of CVA Cont Statin Restless Leg syndrome Cont Ropinirole DVT Prophylaxis (SCD/TEDs) Social Disposition-the patient became agitated overnight and pulled his tunneled hemodialysis catheter overnight. I did discuss this with the patient this morning and he states that he does not remember this occurring, however upon further questioning the patient he states that he "would like to go home." He does appear to answer questions appropriately intermittently (oriented to person, place, and situation upon my evaluation). He related that he "wants to go home and does not want to be in the hospital and treated anymore." I did hold a family conversation with the patient, his , and his son at the bedside this afternoon again. The patient, his , and son have decided that hospice would be the best option at this point as the patient would like to go home and forego any further treatment due to his unfortunate clinical deterioration over the last 2 months which has included a valve replacement complicated by MSSA bacteremia, C. difficile diarrhea, and acute renal failure requiring hemodialysis. Bedside nurse Sandhya present for the conversation. I have placed a hospice consult, and have informed our PFS team to further help direct the patient/family towards the next step(s). VS, I&O, 24H, Fishbone Vital Signs/I&O Vital Signs Date Time Temp Pulse Resp B/P (MAP) Pulse Ox O2 Delivery O2 Flow Rate FiO2 12/19/16 06:53 85 136/70 12/19/16 06:00 97.2 20 99 Nasal Cannula 3.0 I&O- Last 24 Hours up to 6 AM 12/19/16 05:59 Intake Total 60 ml Output Total 700 ml Balance -640 ml Laboratory Data 24H LABS Laboratory Tests 2 12/19/16 06:43: Prothrombin Time 20.4H, Prothromb Time International Ratio 1.74, Anion Gap 6L, Glomerular Filtration Rate 15.2L, Blood Urea Nitrogen 14, Creatinine 4.06H, Sodium Level 141, Potassium Level 3.6, Chloride Level 106, Carbon Dioxide Level 29, Calcium Level 9.0 CBC/BMP Laboratory Tests 12/19/16 06:43 Red Blood Count 2.54 L, Mean Corpuscular Volume 111.8 H, Mean Corpuscular Hemoglobin 35.7 H, Mean Corpuscular Hemoglobin Concent 32.0, Red Cell Distribution Width 21.4 H, Calcium Level 9.0 Microbiology Microbiology 12/09/16 Blood Culture - Final, Complete NO GROWTH AFTER 5 DAYS 12/13/16 Clostridium difficile (PCR) - Final, Complete SANTI BURR MD Dec 19, 2016 14:30
[2016-12-19] MEDS: WARFARIN SOD 2 MG TAB PO SCH (16:52)
[2016-12-19] MEDS: ATORVASTATIN 20 MG TAB PO SCH (21:23)
[2016-12-19] MEDS: rOPINIRole 1MG TAB PO SCH (21:23)
[2016-12-19 22:00] VITALS: BP 122/71
[2016-12-20] MEDS: SODIUM CHLORIDE 0.9% INJ 10 ML SYR IV SCH ×3 (05:30→21:23)
[2016-12-20 05:49] LABS: INR 2.04
[2016-12-20 05:50] LABS: MEAN CORPUSCULAR HEMOGLOBIN 35.6 pg (27.0-33.0); MEAN CORPUSCULAR HGB CONC 31.8 g/dl (32.0-36.5); MEAN CORPUSCULAR VOLUME 111.9 fl (80.0-96.0); RED CELL DISTRIBUTION WIDTH 21.7 % (11.5-14.5); WHITE BLOOD COUNT 8.4 K/mm3 (4.0-10.0)
[2016-12-20 06:00] VITALS: BP 108/56
[2016-12-20 06:39] LABS: CALCIUM LEVEL 8.8 MG/DL (8.8-10.2); CREATININE FOR GFR 4.73 MG/DL (0.70-1.30); GLOMERULAR FILTRATION RATE 12.8 (>42); POTASSIUM SERUM 3.6 MEQ/L (3.5-5.1)
[2016-12-20] MEDS: FLUoxetine 20 MG CAP PO SCH ×2 (07:47→21:25)
[2016-12-20] MEDS: MULTIVITAMINS/MINERALS THERAP 1 TAB PO SCH ×2 (07:47→21:24)
[2016-12-20] MEDS: MEGESTROL SUSP 400 MG/10 ML UDC PO SCH (07:47)
[2016-12-20] MEDS: DIAPER RELIEF PASTE (DESITIN) 60GM TOP PRN (07:48)
[2016-12-20] MEDS: FERROUS GLUCONATE 324 MG TAB PO SCH (07:48)
[2016-12-20] MEDS: NYSTATIN 100,000 UNITS/GM TOPICAL PWD 15 GM TOP SCH ×2 (07:48→21:23)
[2016-12-20] MEDS: CARVedilol 3.125 MG TAB PO SCH ×2 (07:48→21:25)
[2016-12-20] MEDS: FLUTICASONE PROP 0.05% NASAL SPRAY 16 GM (FLONASE) SCH ×2 (07:48→21:23)
[2016-12-20] MEDS: FOLIC ACID 1 MG TAB PO SCH (07:48)
--- NOTE | 2016-12-20 11:12 | IPNPDOC ---
Subjective Date Seen The patient was seen on 12/20/16. Subjective Chief Complaint/HPI Patient more confused this morning, and unable to give a reliable history of overnight events. Objective Physical Examination General Exam: Positive: No Acute Distress ENT Exam: Positive: Atraumatic, Mucous membr. moist/pink Neck Exam: Negative: JVD Chest Exam: Positive: Diminished, Negative: Rhonchi, Wheezing Heart Exam: Positive: Rate Normal, Normal S1, Normal S2, Other (+II/ systolic murmur along the sternal border on the left ) Abdomen Exam: Positive: Soft, Negative: Tenderness Extremity Exam: Negative: Tenderness, Swelling Assessment /Plan Plan/VTE VTE Prophylaxis Ordered?: Yes (SCDs/TEDs) Plan Acute Anuric Renal Failure requiring dialysis Patient pulled Right IJ tunneled catheter overnight in a state of agitation Nephrology on board--We are holding off Dialysis as the patient and his family have decided to pursue hospice care MSSA Bacteremia 2/2 Presumptive Infective Endocarditis s/p completion of Rocephin Hx of C Diff GI Panel negative here However the patient is still having some diarrhea-->Rectal Tube in place We will cont to monitor Atrial Fibrillation, rate controlled Cont Coumadin Cont Coreg Hx of CAD, Bioprosthetic Valve Replacement Cont Coreg, Statin Resume Coumadin Hx of Diastolic Congestive Heart Failure Volume management via dialysis Depression/Anxiety Cont Current Regimen Dyslipidemia Cont statin Hx of CVA Cont Statin Restless Leg syndrome Cont Ropinirole DVT Prophylaxis (SCD/TEDs) Social Disposition-PFS on board and discussing home with hospice versus hospice house placement for the patient with the patient's family. Unfortunately it appears that the hospice team will likely not be able to meet with the patient/ family until next week. I will meet with the family again this afternoon in regards to assess whether they want the patient's code status to be comfort measures only or keep DNR/DNI at this time. VS, I&O, 24H, Fishbone Vital Signs/I&O Vital Signs Date Time Temp Pulse Resp B/P (MAP) Pulse Ox O2 Delivery O2 Flow Rate FiO2 12/20/16 07:48 85 113/64 12/20/16 06:00 97.3 18 98 Room Air 12/19/16 09:30 3.0 I&O- Last 24 Hours up to 6 AM 12/20/16 06:00 Intake Total 120 ml Output Total 375 ml Balance -255 ml Laboratory Data 24H LABS Laboratory Tests 2 12/20/16 05:26: Prothrombin Time 23.1H, Prothromb Time International Ratio 2.04, Anion Gap 9, Glomerular Filtration Rate 12.8L, Blood Urea Nitrogen 17, Creatinine 4.73H, Sodium Level 144, Potassium Level 3.6, Chloride Level 108H, Carbon Dioxide Level 27, Calcium Level 8.8 CBC/BMP Laboratory Tests 12/20/16 05:26 Red Blood Count 2.34 L, Mean Corpuscular Volume 111.9 H, Mean Corpuscular Hemoglobin 35.6 H, Mean Corpuscular Hemoglobin Concent 31.8 L, Red Cell Distribution Width 21.7 H, Calcium Level 8.8 Microbiology Microbiology 12/13/16 Clostridium difficile (PCR) - Final, Complete SANTI BURR MD Dec 20, 2016 11:12
--- NOTE | 2016-12-20 11:36 | IPN ---
DATE: 12/20/2016 SUBJECTIVE: Patient was seen and examined at the bedside today in the morning. He is oriented to himself only. He is confused, obtunded. He is trying to communicate but he is not making any sense. REVIEW OF SYSTEMS: Patient is unable to provide any reliable review of systems. OBJECTIVE: Vital signs: Temperature is 97.3 degrees Fahrenheit, blood pressure 108/56, pulse 88, respiratory rate 18, saturating 98% on room air. Intake and output: Stool output is 1175 mL yesterday. There is no stool output recorded since overnight. There is no urine output recorded. Bed scale weight is not available. PHYSICAL EXAMINATION: GENERAL: Patient is awake, alert, oriented times one lying in bed, no apparent distress. HEAD AND NECK EXAM: Extraocular muscles are intact. Pupils equal, round, and reactive to light. Mucous membranes are dry. Neck is supple. The patient has a left IJ triple lumen catheter. CARDIOVASCULAR: S1, S2. Regular rate. No murmur, rub or gallop. RESPIRATORY: Chest is clear to auscultation bilaterally. Bilaterally equal air entry. ABDOMEN: Soft, positive bowel sounds. Nontender. No ascites. No organomegaly. He has a rectal tube. EXTREMITIES: The patient has multiple scabs on the forearms. Pulses are 2+. There is no lower extremity edema. 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 He follows some commands. Unable to communicate effectively. LAB REVIEW: CBC showed WBC 8.4, hemoglobin is 8.3. BMP showed sodium 144, potassium 3.6, chloride 108, bicarbonate 27, BUN 17, creatinine 4.7. CURRENT INPATIENT MEDICATIONS: The patient's medications are all reviewed by me. There is no change in the medications today as compared with yesterday. ASSESSMENT/PLAN: 1. Acute anuric renal failure: The patient was started on hemodialysis during this admission. He got the tunneled hemodialysis catheter placed which he pulled because of confusion. We have discussed with the family. Family has decided to get Hospice on board. Hospice is going to evaluate the patient today. I am going to hold off for hemodialysis at this point. 2. Dialysis access: The patient does not have any dialysis access at this time. He is pending evaluation by Hospice. If Hospice accepts the patient and family wants to stop hemodialysis, then I would not get any further hemodialysis access on this patient.
[2016-12-20 14:00] VITALS: BP 127/67
[2016-12-20] MEDS: WARFARIN SOD 2 MG TAB PO SCH (17:07)
[2016-12-20] MEDS: rOPINIRole 1MG TAB PO SCH (21:24)
[2016-12-20 21:25] VITALS: BP 119/81
[2016-12-20] MEDS: ATORVASTATIN 20 MG TAB PO SCH (21:25)
[2016-12-20 22:00] VITALS: BP 119/81
[2016-12-21] MEDS: zolPIDEM TARTRATE 10MG TAB PO PRN (00:16)
[2016-12-21] MEDS: DIAPER RELIEF PASTE (DESITIN) 60GM TOP PRN (00:16)
[2016-12-21] MEDS: SODIUM CHLORIDE 0.9% INJ 10 ML SYR IV SCH (05:42)
[2016-12-21 05:54] LABS: MEAN CORPUSCULAR HEMOGLOBIN 36.4 pg (27.0-33.0); MEAN CORPUSCULAR HGB CONC 32.4 g/dl (32.0-36.5); MEAN CORPUSCULAR VOLUME 112.3 fl (80.0-96.0); WHITE BLOOD COUNT 10.4 K/mm3 (4.0-10.0)
[2016-12-21 06:00] VITALS: BP 134/63
[2016-12-21 06:21] LABS: INR 2.9
[2016-12-21 06:31] LABS: CALCIUM LEVEL 8.7 MG/DL (8.8-10.2); CREATININE FOR GFR 5.34 MG/DL (0.70-1.30); GLOMERULAR FILTRATION RATE 11.1 (>42); POTASSIUM SERUM 3.7 MEQ/L (3.5-5.1)
--- NOTE | 2016-12-21 09:40 | IPNPDOC ---
Subjective Date Seen The patient was seen on 12/21/16. Subjective Chief Complaint/HPI Patient more confused and obtunded today, unable to provide any history Objective Physical Examination General Exam: Positive: Other (Patient in no acute distress, laying in bed and verbalizing incomprehensible words) ENT Exam: Positive: Atraumatic, Mucous membr. 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 At this time, the family feels that they do not have the ability to take the patient home on hospice. In addition, they are unable to have the patient go to the Hospice House due to financial constraints. I spoke to the patient's (Princess Villagran) again this morning, and she has decided to make the patient Comfort Measures Only, as her would not want to continue to suffer in his current condition. We will continue to provide supportive treatment to the patient's family at this time. [facility]/I&O Vital Signs Date Time Temp Pulse Resp B/P (MAP) Pulse Ox O2 Delivery O2 Flow Rate FiO2 12/21/16 06:00 99.1 62 18 134/63 (86) 92 Room Air 12/19/16 09:30 3.0 I&O- Last 24 Hours up to 6 AM 12/21/16 06:00 Intake Total 60 ml Output Total 625 ml Balance -565 ml Laboratory Data 24H LABS Laboratory Tests 2 12/21/16 05:40: Prothrombin Time 31.6H, Prothromb Time International Ratio 2.90, Anion Gap 9, Glomerular Filtration Rate 11.1L, Blood Urea Nitrogen 21H, Creatinine 5.34H, Sodium Level 141, Potassium Level 3.7, Chloride Level 107, Carbon Dioxide Level 25, Calcium Level 8.7L CBC/BMP Laboratory Tests 12/21/16 05:40 Red Blood Count 2.36 L, Mean Corpuscular Volume 112.3 H, Mean Corpuscular Hemoglobin 36.4 H, Mean Corpuscular Hemoglobin Concent 32.4, Red Cell Distribution Width 22.0 H, Calcium Level 8.7 L Microbiology Microbiology 12/13/16 Clostridium difficile (PCR) - Final, Complete SANTI BURR MD Dec 21, 2016 09:40
[2016-12-22] MEDS: MORPHINE 10MG/0.5ML ORAL CONCENTRATE SOLUTION U/D SL PRN ×2 (01:32→21:10)
--- NOTE | 2016-12-22 10:00 | IPNPDOC ---
Subjective Date Seen The patient was seen on 12/22/16. Subjective Chief Complaint/HPI Unable to obtain 2/2 clinical condition. Objective Physical Examination General Exam: Positive: No Acute Distress, Other (Patient in no acute distress , laying in bed and verbalizing incomprehensible words) ENT Exam: Positive: Atraumatic, Mucous membr. moist/pink Neck Exam: Negative: JVD Chest Exam: Positive: Diminished, Negative: Rhonchi, Wheezing Heart Exam: Positive: Rate Normal, Normal S1, Normal S2 Abdomen Exam: Positive: Soft, Negative: Tenderness Extremity Exam: Negative: Tenderness, Swelling Assessment /Plan Plan/VTE VTE Prophylaxis Ordered?: Yes (SCDs/TEDs) Plan Acute Anuric Renal Failure requiring dialysis MSSA Bacteremia 2/2 Presumptive Infective Endocarditis Hx of C Diff Atrial Fibrillation Hx of CAD, Bioprosthetic Valve Replacement Hx of Diastolic Congestive Heart Failure Depression/Anxiety Dyslipidemia Hx of CVA Restless Leg syndrome DVT Prophylaxis (SCD/TEDs) Social Disposition-The patient was made Comfort Measures Only on 12/21/16. We will continue to provide supportive treatment at this time. VS, I&O, 24H, Fishbone Vital Signs/I&O Vital Signs Date Time Temp Pulse Resp B/P (MAP) Pulse Ox O2 Delivery O2 Flow Rate FiO2 12/21/16 21:00 Room Air 12/21/16 06:00 99.1 62 18 134/63 (86) 92 12/19/16 09:30 3.0 I&O- Last 24 Hours up to 6 AM 12/22/16 06:00 Intake Total 600 ml Output Total 350 ml Balance 250 ml Laboratory Data Microbiology Microbiology 12/13/16 Clostridium difficile (PCR) - Final, Complete SANTI BURR MD Dec 22, 2016 10:00
[2016-12-22] MEDS: SCOPOLAMINE 1.5 MG TRANSDERMAL TOP SCH (10:22)
--- NOTE | 2016-12-23 09:03 | IPNPDOC ---
Subjective Date Seen The patient was seen on 12/23/16. Subjective Chief Complaint/HPI Patient seen and examined at the bedside, awake and appearing confused this AM. Offers no acute complaints at this time. Objective Physical Examination General Exam: Positive: No Acute Distress, Other (Patient in no acute distress , laying in bed and verbalizing incomprehensible words) ENT Exam: Positive: Atraumatic, Mucous membr. moist/pink Neck Exam: Negative: JVD Chest Exam: Positive: Diminished, Negative: Rhonchi, Wheezing Heart Exam: Positive: Rate Normal, Normal S1, Normal S2 Abdomen Exam: Positive: Soft, Negative: Tenderness Extremity Exam: Negative: Tenderness, Swelling Assessment /Plan Plan/VTE VTE Prophylaxis Ordered?: Yes (SCDs/TEDs) Plan Acute Anuric Renal Failure requiring dialysis MSSA Bacteremia 2/2 Presumptive Infective Endocarditis Hx of C Diff Atrial Fibrillation Hx of CAD, Bioprosthetic Valve Replacement Hx of Diastolic Congestive Heart Failure Depression/Anxiety Dyslipidemia Hx of CVA Restless Leg syndrome DVT Prophylaxis (SCD/TEDs) Social Disposition-The patient was made Comfort Measures Only on 12/21/16. We will continue to provide supportive treatment at this time. VS, I&O, 24H, Fishbone Vital Signs/I&O Vital Signs Date Time Temp Pulse Resp B/P (MAP) Pulse Ox O2 Delivery O2 Flow Rate FiO2 12/22/16 21:00 Room Air 12/21/16 06:00 99.1 62 18 134/63 (86) 92 12/19/16 09:30 3.0 I&O- Last 24 Hours up to 6 AM 12/23/16 06:00 Intake Total 865 ml Output Total 170 ml Balance 695 ml Laboratory Data Microbiology Microbiology 12/13/16 Clostridium difficile (PCR) - Final, Complete SANTI BURR MD Dec 23, 2016 09:03
[2016-12-23] MEDS: ALPRAZolam 0.25 MG TAB PO PRN (23:31)
[2016-12-23] MEDS: MORPHINE 10MG/0.5ML ORAL CONCENTRATE SOLUTION U/D SL PRN (23:31)
[2016-12-24] MEDS: MORPHINE 10MG/0.5ML ORAL CONCENTRATE SOLUTION U/D SL PRN ×2 (08:29→19:55)
[2016-12-24] MEDS: ALPRAZolam 0.25 MG TAB PO PRN (19:55)
--- NOTE | 2016-12-24 21:13 | IPN ---
DATE: 12/24/2016 SUBJECTIVE: Patient seen and examined in the room today. Patient is awake; however, patient is nonverbal. Sign of confusion. ASSESSMENT: 1. Acute anuric renal failure. 2. Methicillin-sensitive Staphylococcus aureus (MSSA) bacteremia secondary to presumptive infectious endocarditis. 3. Atrial fibrillation. 4. History of coronary artery disease with bioprosthetic valve. 5. History of diastolic congestive heart failure. 6. Anxiety/depression. 7. Dyslipidemia. 8. History of cerebrovascular accident (CVA). 9. History of restless leg syndrome. 10. Severe malnutrition. 11. Encephalopathy from active infection. PLAN: Patient placed on comfort measures only since 12/21/2016. Patient has a history of poor dialysis catheter. I will discuss the case with case management to see the future disposition. GRICELDA
[2016-12-25] MEDS: SCOPOLAMINE 1.5 MG TRANSDERMAL TOP SCH (08:06)
[2016-12-25] MEDS: MORPHINE 10MG/0.5ML ORAL CONCENTRATE SOLUTION U/D SL PRN ×2 (08:07→10:24)
[2016-12-25] MEDS: ALPRAZolam 0.25 MG TAB PO PRN (10:24)
--- NOTE | 2016-12-25 16:40 | IPN ---
DATE: 12/25/2016 SUBJECTIVE: Patient is seen today. Patient shows some more agitation. Patient is still nonverbal and not able to follow commands. Per nursing staff, patient still does not have any type of oral intake. PHYSICAL EXAMINATION: GENERAL: Patient is agitated. Extreme movements demonstrate anxiety. HEENT: Normocephalic, atraumatic. CARDIOVASCULAR: Positive S1, S2, regular rate. LUNGS: Diminished breath sounds. ABDOMEN: Soft, nontender. EXTREMITIES: No swelling. ASSESSMENT: 1. Acute anuric renal failure. 2. Methicillin-sensitive Staphylococcus aureus (MSSA) bacteremia secondary to presumptive infective endocarditis. 3. Atrial fibrillation. 4. History of coronary artery disease with a bioprosthetic valve. 5. History of diastolic congestive heart failure. 6. Anxiety/depression. 7. Dyslipidemia. 8. History of cerebrovascular accident. 9. History of restless leg syndrome. 10. Severe malnutrition. 11. Encephalopathy from active infection. PLAN: Patient is on comfort measures only since 12/21/2016. Patient has a history of pulling out the dialysis catheter. Patient is on hospice medication. Patient will have Ativan as needed for anxiety. Patient also has been using a scopolamine patch for excess secretions. Patient is on morphine as needed. Currently, working with a social media marketing analyst to see if patient will qualify for hospice facilities. Patient's prognosis is extremely poor, especially when patient has not had any type of oral intake in the last several days. MTDD
[2016-12-26] MEDS: MORPHINE 10MG/0.5ML ORAL CONCENTRATE SOLUTION U/D SL PRN (01:22)
--- NOTE | 2016-12-26 18:37 | IPN ---
DATE: 12/26/2016 SUBJECTIVE: The patient seen in the room today. The patient is nonverbal. Not able to follow commands. The patient continues to have no oral intake. Per medical record, the patient also has minimal output. ASSESSMENT AND PLAN: 1. Acute anuric renal failure. 2. Methicillin-susceptible Staphylococcus aureus (MSSA) bacteremia secondary to presumptive infective endocarditis. 3. Atrial fibrillation. 4. History of coronary artery disease with a bioprosthetic valve. 5. History of diastolic congestive heart failure. 6. Anxiety/depression. 7. Dyslipidemia. 8. History of cerebrovascular accident. 9. History of restless leg syndrome. 10. Severe malnutrition. 11. Encephalopathy from active infection. PLAN: The patient is COMFORT MEASURES ONLY (PACKAGER MACHINE) since December 21, 2016. The patient's prognosis is extremely poor. The patient does not have any oral intake. The patient started to have no output. Currently, the patient's family members does not have the support for home Hospice care due there is no option for the hospice facility. The patient will remain at [facility] while patient is receiving hospice treatments. GRICELDA
[2016-12-27] MEDS: MORPHINE 10MG/0.5ML ORAL CONCENTRATE SOLUTION U/D SL PRN (01:53)
--- NOTE | 2016-12-27 19:50 | IPN ---
DATE: 12/27/2016 SUBJECTIVE: The patient was seen in the room today. The patient continues to have nonpurposeful limb movements. Per record, the patient does not have any intake and the patient does not even have any output. No overnight events were reported. ASSESSMENT AND PLAN: 1. Acute anuric renal failure. 2. Methicillin-sensitive Staphylococcus aureus (MSSA) bacteremia secondary to presumptive infective endocarditis. 3. Atrial fibrillation. 4. History of coronary artery disease with a bioprosthetic valve. 5. History of diastolic congestive heart failure. 6. Anxiety/depression. 7. Dyslipidemia. 8. History of cerebrovascular accident. 9. History of restless leg syndrome. 10. Severe malnutrition. 11. Encephalopathy from active infection. Plan: The patient is Comfort Measures Only (AIR CONDITIONING SPECIALIST) since December 21, 2016. The patient does not have any input or output in the last several days. The patient's prognosis is extremely poor. Currently, home hospice or hospice facility is not an option with the patient. We will continue to see him while the patient in the hospital. GRICELDA
[2016-12-27] MEDS: ALPRAZolam 0.25 MG TAB PO PRN (23:08)
[2016-12-28] MEDS: SCOPOLAMINE 1.5 MG TRANSDERMAL TOP SCH (09:58)
--- NOTE | 2016-12-28 13:59 | IPN ---
DATE OF VISIT: 12/28/2016 SUBJECTIVE: The patient seen in the room today. The patient remains unresponsive. No input or output observed. ASSESSMENT AND PLAN: 1. Acute anuric renal failure. 2. Methicillin-sensitive Staphylococcus aureus (MSSA) bacteremia secondary to presumptive infective endocarditis. 3. Atrial fibrillation. 4. History of coronary artery disease with a bioprosthetic valve. 5. History of diastolic congestive heart failure. 6. Anxiety/depression. 7. Dyslipidemia. 8. History of cerebrovascular accident (CVA). 9. History of restless legs syndrome. 10. Severe malnutrition. 11. Encephalopathy from active infection. PLAN: The patient is a comfort measures only (CITY COMPTROLLER) since 12/21/2016. The patient does not have any input or output. Extremely poor prognosis. Currently , the patient is receiving hospice medication regimen. MTDD
--- NOTE | 2016-12-29 12:59 | IPN ---
DATE: 12/29/2016 SUBJECTIVE: Patient seen in the room today. Patient continues to have minimal oral intake. No events were reported. No output is observed. ASSESSMENT AND PLAN: 1. Methicillin-sensitive Staphylococcus aureus (MSSA) bacteremia secondary to presumptive infective endocarditis. 2. Atrial fibrillation. 3. Acute anuric renal failure. 4. History of coronary artery disease with a bioprosthetic valve. 5. History of diastolic congestive heart failure. 6. Anxiety/depression. 7. Dyslipidemia. 8. History of cerebrovascular accident (CVA). 9. Restless leg syndrome. 10. Severe malnutrition. 11. Encephalopathy from active infection. PLAN: The patient is a comfort measures only (BACTERIOLOGIST DAIRY) since 12/21/2016. Continues to have no oral intake and there is no observed output. Extremely poor prognosis. Continue with hospice regimen. MTDD
[2016-12-29] MEDS: ALPRAZolam 0.25 MG TAB PO PRN (14:09)
[2016-12-29] MEDS: MORPHINE 10MG/0.5ML ORAL CONCENTRATE SOLUTION U/D SL PRN (14:09)
[2016-12-30] MEDS: MORPHINE 10MG/0.5ML ORAL CONCENTRATE SOLUTION U/D SL PRN ×2 (00:57→21:46)
[2016-12-30] MEDS: ALPRAZolam 0.25 MG TAB PO PRN ×2 (00:57→21:46)
--- NOTE | 2016-12-30 15:52 | IPN ---
DATE: 12/30/2016 SUBJECTIVE: The patient is seen today in the room. The patient is being washed by the staff. The patient continues to have no oral intake. No output. No events reported. ASSESSMENT AND PLAN: 1. Methicillin-sensitive Staphylococcus aureus (MSSA) bacteremia secondary to presumptive infective endocarditis. 2. Atrial fibrillation. 3. Acute anuric renal failure. 4. History of coronary artery disease with a bioprosthetic valve. 5. History of diastolic congestive heart failure. 6. Anxiety/depression. 7. Dyslipidemia. 8. Cerebrovascular accident (CVA). 9. Restless leg syndrome. 10. Severe malnutrition. 11. Encephalopathy from active infection. The patient is comfort measures only (PANEL MACHINE OPERATOR) since 12/21/2016. Continues to have no oral intake and no observed output. The patient has an extremely poor prognosis. The patient is on hospice regimen. Per the patient's family, they do not have the capacity for home hospice. Due to some insurance or financial issue, the patient is not a candidate for hospice facility. GRICELDA
[2016-12-31] MEDS: SCOPOLAMINE 1.5 MG TRANSDERMAL TOP SCH (08:38)
--- NOTE | 2016-12-31 13:14 | IPNPDOC ---
Subjective Date Seen The patient was seen on 12/31/16. Subjective Chief Complaint/HPI Patient noted to be lying in bed, remains confused/lethargic, and has not had any by mouth intake in over a week according to bedside nurse. Objective Physical Examination General Exam: Positive: No Acute Distress, Other (Patient in no acute distress , laying in bed and verbalizing incomprehensible words) ENT Exam: Positive: Atraumatic, Negative: Mucous membr. moist/pink Neck Exam: Negative: JVD Chest Exam: Positive: Diminished, Negative: Rhonchi, Wheezing Heart Exam: Positive: Rate Normal, Normal S1, Normal S2 Abdomen Exam: Positive: Soft, Negative: Tenderness Extremity Exam: Negative: Tenderness, Swelling Assessment /Plan Plan/VTE VTE Prophylaxis Ordered?: No Plan Acute Anuric Renal Failure requiring dialysis MSSA Bacteremia 2/2 Presumptive Infective Endocarditis Hx of C Diff Atrial Fibrillation Hx of CAD, Bioprosthetic Valve Replacement Hx of Diastolic Congestive Heart Failure Depression/Anxiety Dyslipidemia Hx of CVA Restless Leg syndrome Severe malnutrition Social Disposition-The patient was made Comfort Measures Only on 12/21/16. His family does not have the capability to take him home. In addition, the patient is unable to go to the hospice house due to financial constraints. We will continue to provide supportive treatment at this time here. VS, I&O, 24H, Fishbone Vital Signs/I&O Vital Signs Date Time Temp Pulse Resp B/P (MAP) Pulse Ox O2 Delivery O2 Flow Rate FiO2 12/31/16 09:00 Room Air 12/30/16 21:46 16 I&O- Last 24 Hours up to 6 AM 12/31/16 06:00 Intake Total 0 ml Output Total 0 ml Balance 0 ml SANTI BURR MD Dec 31, 2016 13:14
[2016-12-31] MEDS: MORPHINE 10MG/0.5ML ORAL CONCENTRATE SOLUTION U/D SL PRN (23:10)
[2017-01-01] MEDS: ALPRAZolam 0.25 MG TAB PO PRN (09:17)
--- NOTE | 2017-01-01 10:06 | IPNPDOC ---
Subjective Date Seen The patient was seen on 01/01/17. Subjective Chief Complaint/HPI Patient seen and examined at the bedside this morning. The patient remains obtunded and has not tolerated any by mouth intake. Objective Physical Examination General Exam: Positive: No Acute Distress, Other (Patient in no acute distress , laying in bed and verbalizing incomprehensible words) ENT Exam: Positive: Atraumatic, Negative: Mucous membr. 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 His family does not have the capability to take him home. In addition, the patient is unable to go to the hospice house due to financial constraints. We will continue to provide supportive treatment at this time here. VS, I&O, 24H, Fishbone Vital Signs/I&O Vital Signs Date Time Temp Pulse Resp B/P (MAP) Pulse Ox O2 Delivery O2 Flow Rate FiO2 01/01/17 09:46 Room Air 12/30/16 21:46 16 I&O- Last 24 Hours up to 6 AM 01/01/17 05:59 Intake Total 0 ml Balance 0 ml SANTI BURR MD Jan 01, 2017 10:06
[2017-01-02] MEDS: MORPHINE 10MG/0.5ML ORAL CONCENTRATE SOLUTION U/D SL PRN ×4 (02:40→11:56)
[2017-01-02] MEDS: ATROPINE SULFATE 1% OP SOLN 2 ML BTL SL PRN ×3 (04:50→10:54)
[2017-01-02] MEDS ORDERED: BISACODYL 10 MG SUPP PR ONE (09:30)
--- NOTE | 2017-01-02 10:54 | IPNPDOC ---
Subjective Date Seen The patient was seen on 01/02/17. Subjective Chief Complaint/HPI Patient seen and examined at the bedside. Remains obtunded and nonverbal. Objective Physical Examination General Exam: Positive: No Acute Distress, Other (Patient in no acute distress , laying in bed and verbalizing incomprehensible words) ENT Exam: Positive: Atraumatic, Negative: Mucous membr. moist/pink Neck Exam: Negative: JVD Chest Exam: Positive: Diminished, Negative: Rhonchi, Wheezing Heart Exam: Positive: Rate Normal, Normal S1, Normal S2 Abdomen Exam: Positive: Soft, Negative: Tenderness Extremity Exam: Negative: Tenderness, Swelling Assessment /Plan Plan/VTE VTE Prophylaxis Ordered?: No (FURNACE ATTENDANT) Plan Acute Anuric Renal Failure requiring dialysis MSSA Bacteremia 2/2 Presumptive Infective Endocarditis Hx of C Diff Atrial Fibrillation Hx of CAD, Bioprosthetic Valve Replacement Hx of Diastolic Congestive Heart Failure Depression/Anxiety Dyslipidemia Hx of CVA Restless Leg syndrome Severe malnutrition Social Disposition-The patient was made Comfort Measures Only on 12/21/16. His family does not have the capability to take him home. In addition, the patient is unable to go to the hospice house due to financial constraints. We will continue to provide supportive treatment at this time here. VS, I&O, 24H, Fishbone Vital Signs/I&O Vital Signs Date Time Temp Pulse Resp B/P (MAP) Pulse Ox O2 Delivery O2 Flow Rate FiO2 01/02/17 08:54 22 Room Air I&O- Last 24 Hours up to 6 AM 01/02/17 06:00 Intake Total 0 ml Output Total 0 ml Balance 0 ml SANTI BURR MD Jan 02, 2017 10:54
[2017-01-02] MEDS: ALPRAZolam 0.25 MG TAB PO PRN (13:33)
--- NOTE | 2017-01-02 15:39 | DS.PDOC ---
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 HISTORY OF PRESENT ILLNESS: . 81-year-old male with a rather complicated past medical history in recent months who recently had a bioprosthetic aortic valve replacement at [facility] on 09/13/2016. This was complicated by a subsequent admission for MSSA bacteremia on 11/28/2016. A PAZ done during the admission at [facility] revealed no vegetations on the valve. However, the patient was treated for presumptive endocarditis with oxacillin, rifampin, and 2 weeks of gentamicin starting on 12/01/16. Unfortunately, the patient's course was further complicated by C. difficile infection from the aforementioned antibiotics. The patient was then also started on 6 weeks of oral vancomycin. The patient then decided to sign himself out AGAINST MEDICAL ADVICE at [facility] on 12/04/16, and was said to be considering hospice care. The next day the patient was admitted to [facility] for generalized weakness and decompensated congestive heart failure, with the plan to transfer the patient to hospice vs rehabilitation eventually depending on the patient's clinical condition. The patient subsequently developed acute renal failure during his admission at [facility] from 12/05-12/09, as his serum creatinine increased from 0.7 to 3.0 during this time. Of note, the patient has been oliguric for the last 3 days producing about 50 mL of urine each day during this time. The patient was subsequently transferred to [facility] for further evaluation and management with nephrology consultation, as the patient and the family wanted to pursue further medical care. At this time, the patient states that he is feeling generalized fatigue, but denies any acute complaints of fevers, chills, SOB, chest pain, palpitations, lightheadedness, abdominal pain, or any nausea/vomiting. During hospitalization, the patient went into anuric renal failure requiring dialysis. However, the patient did pull out his dialysis catheter overnight on into 12/20. The patient and the family ultimately decided to make the patient comfort measures only on 12/21/16. Efforts were made to possibly send the patient home on hospice. However, the patient's family did not have the capability to provide care at home. The patient could not go to the house of hospice due to financial constraints for the family. The patient was provided supportive comfort measure treatment in the interim. The patient subsequently on 01/02/17 at 1:55 PM. DISCHARGE MEDICATIONS: Please see below. ALLERGIES: Please see below. DISCHARGE CONDITION: on 01/02/17 @ 1:55pm TIME SPENT ON DISCHARGE: Greater than 30 minutes. Vital Signs/I&Os Vital Signs Date Time Temp Pulse Resp B/P (MAP) Pulse Ox O2 Delivery O2 Flow Rate FiO2 01/02/17 12:29 20 Nasal Cannula 2.0 I&O- Last 24 Hours up to 6 AM 01/02/17 06:00 Intake Total 0 ml Output Total 0 ml Balance 0 ml Discharge Medications Scheduled Aspirin (Aspirin 81) 81 Mg Tab, 81 MG PO DAILY, (Reported) Atorvastatin Calcium (Atorvastatin Calcium) 40 Mg Tab, 40 MG PO QHS, (Reported) Carvedilol (Carvedilol) 3.125 Mg Tab, 3.125 MG PO BID, (Reported) Cholecalciferol (Vitamin D) 1,000 Unit Tab, 1,000 UNIT PO DAILY, (Reported) Cyanocobalamin (Vitamin B-12) 100 Mcg Tab, 100 MCG PO DAILY, (Reported) Donepezil Hcl (Donepezil HCl) 10 Mg Tab, 10 MG PO DAILY, (Reported) Ferrous Gluconate (Ferrous Gluconate) 324 Mg Tab, 324 MG PO DAILY, (Reported) Fluoxetine HCl (Prozac) 20 Mg Cap, 20 MG PO BID, (Reported) Folic Acid (Folic Acid) 1 Mg Tab, 1 MG PO DAILY, (Reported) Furosemide (Lasix) 40 Mg Tab, 40 MG PO DAILY, (Reported) Melatonin (Melatonin) 10 Mg Tab, 10 MG PO QHS, (Reported) Multivitamins *[facility] STOCKED* (Thera M Plus *[facility] STOCKED*) 1 Tab Tab, 1 TAB PO BID , (Reported) Omeprazole (Omeprazole) 20 Mg Cap, 20 MG PO BID, (Reported) Ropinirole Hydrochloride (Ropinirole HCl) 3 Mg Tab, 3 MG PO QHS, (Reported) Spironolactone (Spironolactone) 25 Mg Tab, 25 MG PO DAILY, (Reported) Warfarin Sod (Warfarin Sodium) 3 Mg Tab, 3 MG PO DAILY, (Reported) Zolpidem Tartrate (Zolpidem Tartrate) 10 Mg Tab, 10 MG PO QHS, (Reported) Allergies Coded Allergies: Penicillins (Unverified Allergy, Unknown, 05/14/15) SANTI BURR MD Jan 02, 2017 15:39
== END 2017-01-02 13:55 | disposition expired | DRG 682 ==
LOC: M PCU 11:17 → M MSPAV 12-18 15:14
PROVIDERS: ADMIT Internal Medicine; ATTEND Internal Medicine
PROC: 02HV33Z Insertion of Infusion Device into Superior Vena Cava, Percutaneous Approach (ICD-10-PCS; principal; 2016-12-10)
PROC: 5A1D60Z (ICD-10-PCS; 2016-12-11)
PROC: 02H633Z Insertion of Infusion Device into Right Atrium, Percutaneous Approach (ICD-10-PCS; 2016-12-18)
PROC: 02PY33Z Removal of Infusion Device from Great Vessel, Percutaneous Approach (ICD-10-PCS; 2016-12-18)
DX: N17.9 Acute kidney failure, unspecified (principal); I33.9 Acute and subacute endocarditis, unspecified; I50.43 Acute on chronic combined systolic (congestive) and diastolic (congestive) heart failure; E43 Unspecified severe protein-calorie malnutrition; G93.49 Other encephalopathy; I13.2 Hypertensive heart and chronic kidney disease with heart failure and with stage 5 chronic kidney disease, or end stage renal disease; I48.91 Unspecified atrial fibrillation; Z95.2 Presence of prosthetic heart valve; F32.9 Major depressive disorder, single episode, unspecified; F41.9 Anxiety disorder, unspecified; Z51.5 Encounter for palliative care; E87.6 Hypokalemia; R19.7 Diarrhea, unspecified; Z66 Do not resuscitate; I25.2 Old myocardial infarction; N18.6 End stage renal disease; G25.81 Restless legs syndrome; D63.1 Anemia in chronic kidney disease; K21.9 Gastro-esophageal reflux disease without esophagitis; E78.5 Hyperlipidemia, unspecified; G47.33 Obstructive sleep apnea (adult) (pediatric); T36.95XA Adverse effect of unspecified systemic antibiotic, initial encounter; R31.9 Hematuria, unspecified; B95.61 Methicillin susceptible Staphylococcus aureus infection as the cause of diseases classified elsewhere; Z87.891 Personal history of nicotine dependence; Z95.5 Presence of coronary angioplasty implant and graft; Z85.46 Personal history of malignant neoplasm of prostate; Z79.01 Long term (current) use of anticoagulants; Z88.0 Allergy status to penicillin; Z86.73 Personal history of transient ischemic attack (TIA), and cerebral infarction without residual deficits; Z79.82 Long term (current) use of aspirin; Z79.899 Other long term (current) drug therapy